=== PATIENT | male | born 1995 | race Asian ===

== ENCOUNTER 2017-06-05 19:32 | Emergency (ER) | payer BC, MEDICAID ==
[~2017-06-05] VITALS: Ht 137.2 cm; Wt 38.6 kg
[2017-06-05] MEDS ORDERED: FLUO-177 PO (19:40)
[2017-06-05] MEDS ORDERED: QUET150T3 PO (19:40)
[2017-06-05] MEDS ORDERED: fentaNYL CITR 100 MCG/2 ML AMP IVP ONE (20:00)
[2017-06-05] MEDS ORDERED: ONDANSETRON 4 MG/2 ML VIAL IVP ONE (20:00)
--- NOTE | 2017-06-05 20:00 | ER Report ---
History and Physical Time Seen By MD: 19:38 HPI/ROS CHIEF COMPLAINT: Fall HISTORY OF PRESENT ILLNESS: 21-year-old male with osteogenesis imperfecta here after fall face down from wheelchair with multiple suspected fractures he complains of pain in bilateral upper and lower extremities but denies pelvic or rib pain. He also denies head or neck pain. He is pretty sure he is fractured in multiple areas in his extremities. EMS was in agreement with this. Apparently the fall happened sometime this morning and they were found him down , gave him his cell phone so that he call his father for help. REVIEW OF SYSTEMS: Constitutional: No fever, no chills. Eyes: No discharge. ENT: No sore throat. Cardiovascular: No chest pain, no palpitations. Respiratory: No cough, no shortness of breath. Gastrointestinal: No abdominal pain, no vomiting. Genitourinary: No hematuria. Musculoskeletal: Negative as per history of present illness Skin: No rashes. Neurological: No headache. Allergies: Coded Allergies: No Known Drug Allergies (Unverified , 06/05/17) Home Meds Reported Medications Quetiapine Fumarate (SEROQUEL XR) 150 Mg Tab.er.24h, 125 MG PO DAILY 06/05/17 Fluoxetine Hcl (FLUOXETINE HCL) 20 Mg Capsule, PO QDAY, CAPSULE 06/05/17 Constitutional Vital Sign - Last 24 Hours 06/05/17 06/05/17 06/05/17 06/05/17 19:40 19:45 20:00 20:30 Temp 97.8 Pulse 149 149 120 130 Resp 14 16 16 Pulse Ox 98 97 92 92 O2 Delivery Room Air Room Air Room Air 06/05/17 06/05/17 21:00 21:30 Pulse 145 160 Resp 16 14 Pulse Ox 92 92 O2 Delivery Room Air Room Air Intake and Output 06/05/17 06/05/17 06/06/17 15:01 23:01 07:01 Output Total 0 ml Balance 0 ml Physical Exam General Appearance: The patient is alert, has no immediate need for airway protection and no signs of toxicity. [ ] Eyes: Pupils equal and round no pallor or injection. ENT, Mouth: Mucous membranes are moist. Respiratory: There are no retractions, lungs are clear to auscultation. Cardiovascular: Regular rate and rhythm. No murmurs gallops or rubs Gastrointestinal: Abdomen is soft and non tender, no masses, bowel sounds normal. Neurological: Awake and talking Skin: Warm and dry, no rashes. Musculoskeletal: Neck is supple non tender. Crepitus present right humerus left humerus right wrist. Tenderness bilateral lower extremities diffusely. [ ] DIFFERENTIAL DIAGNOSIS: After history and physical exam differential diagnosis was considered for fall osteogenesis imperfecta multiple fractures Medical Decision Making Data Points Result Diagram: 06/05/17223406/05/172234 Laboratory Hematology Test 06/05/17 22:35 Red Blood Count 4.41 M/uL (4.00-5.60) Mean Corpuscular Volume 89.1 fL (80.0-96.0) Mean Corpuscular Hemoglobin 30.9 pg (26.0-33.0) Mean Corpuscular Hemoglobin Concent 34.7 g/dL (32.0-36.0) Red Cell Distribution Width 13.1 % (11.5-14.5) Mean Platelet Volume 6.3 fL (7.2-11.1) Neutrophils (%) (Auto) 84.1 % (39.4-72.5) Lymphocytes (%) (Auto) 7.3 % (17.6-49.6) Monocytes (%) (Auto) 8.3 % (4.1-12.4) Eosinophils (%) (Auto) 0.1 % (0.4-6.7) Basophils (%) (Auto) 0.2 % (0.3-1.4) Nucleated RBC Relative Count (auto) 0.0 /100WBC Neutrophils # (Auto) 22.3 K/uL (2.0-7.4) Lymphocytes # (Auto) 1.9 K/uL (1.3-3.6) Monocytes # (Auto) 2.2 K/uL (0.3-1.0) Eosinophils # (Auto) 0.0 K/uL (0.0-0.5) Basophils # (Auto) 0.1 K/uL (0.0-0.1) Nucleated RBC Absolute Count (auto) 0.01 K/uL Peripheral Blood Smear Yes Y/N Sodium Level 142 mmol/L (137-145) Potassium Level 3.7 mmol/L (3.5-5.0) Chloride Level 105 mmol/L (98-107) Carbon Dioxide Level 17 mmol/L (22-30) Blood Urea Nitrogen 10 mg/dl (9-21) Creatinine 1.20 mg/dl (0.66-1.25) Glomerular Filtration Rate Calc > 60.0 Random Glucose 148 mg/dl (75-110) Calcium Level 9.5 mg/dl (8.4-10.2) Chemistry Test 06/05/17 22:35 White Blood Count 26.6 k/uL (4.5-11.0) Red Blood Count 4.41 M/uL (4.00-5.60) Hemoglobin 13.6 g/dL (14.0-18.0) Hematocrit 39.3 % (42.0-52.0) Mean Corpuscular Volume 89.1 fL (80.0-96.0) Mean Corpuscular Hemoglobin 30.9 pg (26.0-33.0) Mean Corpuscular Hemoglobin Concent 34.7 g/dL (32.0-36.0) Red Cell Distribution Width 13.1 % (11.5-14.5) Platelet Count 519 K/uL (150-450) Mean Platelet Volume 6.3 fL (7.2-11.1) Neutrophils (%) (Auto) 84.1 % (39.4-72.5) Lymphocytes (%) (Auto) 7.3 % (17.6-49.6) Monocytes (%) (Auto) 8.3 % (4.1-12.4) Eosinophils (%) (Auto) 0.1 % (0.4-6.7) Basophils (%) (Auto) 0.2 % (0.3-1.4) Nucleated RBC Relative Count (auto) 0.0 /100WBC Neutrophils # (Auto) 22.3 K/uL (2.0-7.4) Lymphocytes # (Auto) 1.9 K/uL (1.3-3.6) Monocytes # (Auto) 2.2 K/uL (0.3-1.0) Eosinophils # (Auto) 0.0 K/uL (0.0-0.5) Basophils # (Auto) 0.1 K/uL (0.0-0.1) Nucleated RBC Absolute Count (auto) 0.01 K/uL Peripheral Blood Smear Yes Y/N Glomerular Filtration Rate Calc > 60.0 Calcium Level 9.5 mg/dl (8.4-10.2) ED Course/Re-evaluation ED Course electronic engineering technician notified; d/w Dr Gutierrez, plan for CT jarrett scan suspected multiple fractures. Complete bone survey for extremities. Patient requesting transfer to [facility]. 06/05/2017 11:41:37 pm patient accepted by orthopedic surgeon at [facility] in [place] Dr. Cm Alberto. Patient accepted by emergency department attending Patient will be transferred ALS and go directly to the ED Vital stable and pain well-controlled prior to discharge Decision to Disposition Date: Jun 05, 2017 Decision to Disposition Time: 23:42 Depart Departure Latest Vital Signs Vital Signs Date Time Temp Pulse Resp B/P (MAP) Pulse Ox O2 Delivery O2 Flow Rate FiO2 06/05/17 21:30 160 14 92 Room Air 06/05/17 19:40 97.8 Impression: Primary Impression: Fractures involving multiple body regions Additional Impression: Fall from wheelchair Condition: Improved Disposition: [facility] Problem Qualifiers ROXI MARSH MD Jun 05, 2017 20:00
[2017-06-05] MEDS ORDERED: MORPHINE 10 MG/ML SYR IM PRN (20:30)
[2017-06-05] MEDS ORDERED: ONDANSETRON 4 MG ODT TH SL ONE (20:55)
[2017-06-05] MEDS ORDERED: ONDANSETRON 4 MG ODT TABDP SL ONE (21:00)
--- NOTE | 2017-06-05 21:55 | RADIOLOGY IMAGING REPORT ---
FACILITY: [facility] PATIENT NAME: Cm Hamlin : 1995 MR: [id number] V: [id number] EXAM DATE: ORDERING PHYSICIAN: ROXI MARSH TECHNOLOGIST: Location: [facility] [place] Patient: Cm Hamlin : 1995 Visit/Account:[id number] Date of Sevice: 06/05/2017 HEAD W/O CONTRAST HISTORY: fall, fractures COMPARISON STUDIES: None TECHNIQUE: Contiguous axial images were obtained from the skull base to the vertex. One of the ShipEarly dose optimization techniques was utilized in the performance of this exam: automated exposure co ntrol; adjustment of the mA and/or kv according to patient size; or use of iterative reconstruction t echnique. Specific details can be referenced in the facility's radiology CT exam operational policy. FINDINGS: Hemorrhage: Negative Ventricles / sulci / fissures: No hydrocephalus. Prominent posterior fossa CSF Masses / midline shift: Negative White matter: Negative Rodrigez-white differentiation: Negative Vessels: Negative Extra-axial spaces: Negative Bones/skull base: Negative Visualized mastoid air cells / paranasal sinuses: Negative Scalp and soft tissues: Right frontal scalp hematoma. Other findings: None significant IMPRESSION: 1. Negative for acute intracranial blood or skull fracture. Report Dictated By: Krishna Rosenberg MD at 06/05/2017 9:44 PM Report E-Signed By: Krishna Rosenberg MD at 06/05/2017 9:50 PM WSN:[id number]
--- NOTE | 2017-06-05 21:57 | RADIOLOGY IMAGING REPORT ---
FAC[place]: [facility] [place]IENT NAME: Cm Hamlin : 1995 MR: [id number] V: [id number] EXAM DATE: ORDERING PHYSICIAN: ROXI MARSH TECHNOLOGIST: Location: [facility] Patient: Cm Hamlin : 1995 Visit/Account:[id number] Date of Sevice: 06/05/2017 C-SPINE W/O CONTRAST HISTORY: fall, fractures COMPARISON STUDIES: none TECHNIQUE: Axial images were obtained from the skull base through the upper thoracic spine without i ntravenous contrast. Coronal and sagittal reformatted images were obtained from the axial source data . One of the following dose optimization techniques was utilized in the performance of this exam: aut omated exposure control; adjustment of the mA and/or kv according to patient size; or use of iterativ e reconstruction technique. Specific details can be referenced in the facility's radiology CT exam op erational policy. FINDINGS: Pre-vertebral soft tissues: Negative Fracture/alignment: negative Vertebral bodies: Negative Posterior elements: Negative Disc Spaces: Negative Visualized soft tissues anterior neck: Negative Visualized lung / mediastinum: Negative Other findings: None significant IMPRESSION: 1. Negative for acute fracture or spondylolisthesis. Report Dictated By: Krishna Rosenberg MD at 06/05/2017 9:51 PM Report E-Signed By: Krishna Rosenberg MD at 06/05/2017 9:53 PM WSN:[id number]
--- NOTE | 2017-06-05 22:01 | RADIOLOGY IMAGING REPORT ---
FACILITY: [facility] [place] PATIENT NAME: Cm Hamlin : 1995 MR: [id number] V: [id number] EXAM DATE: ORDERING PHYSICIAN: ROXI MARSH TECHNOLOGIST: Location: [facility] Patient: Cm Hamlin : 1995 Visit/Account:[id number] Date of Sevice: 06/05/2017 T-SPINE W/O CONTRAST History: Fall COMPARISON STUDIES: none TECHNIQUE: Axial images were obtained from the lower cervico-thoracic junction through the thoraco-l umbar junction without IV contrast administration. Coronal and sagittal reformatted images were obtai carlos from the axial source data. One of the following dose optimization techniques was utilized in the performance of this exam: automated exposure control; adjustment of the mA and/or kv according to pa tient size; or use of iterative reconstruction technique. Specific details can be referenced in the [facility]'s radiology CT exam operational policy. FINDINGS: Paravertebral soft tissues: Negative Alignment: Negative Vertebral bodies: Mild superior endplate compression fractures at T6 and T7. No retropulsed bony ridg e or bony stenosis of the canal. Dextroscoliosis. Posterior elements: Negative Disc Spaces: Negative Visualized lung / mediastinum / abdomen: Please see separate report Other findings: None significant IMPRESSION: 1. Mild superior endplate compression fractures at T6 and T7. No retropulsed bony ridge or bony steno sis of the canal. Report Dictated By: Krishna Rosenberg MD at 06/05/2017 9:53 PM Report E-Signed By: Krishna Rosenberg MD at 06/05/2017 9:58 PM WSN:[id number]
--- NOTE | 2017-06-05 22:08 | RADIOLOGY IMAGING REPORT ---
FACILITY: [facility] - [place] PATIENT NAME: Cm Hamlin : 1995 MR: [id number] V: [id number] EXAM DATE: ORDERING PHYSICIAN: ROXI MARSH TECHNOLOGIST: Location: [facility] [place] Patient: Cm Hamlin : 1995 Visit/Account:[id number] Date of Sevice: 06/05/2017 L-SPINE W/O CONTRAST HISTORY: Fall COMPARISON STUDIES: None TECHNIQUE: Axial images were obtained from the thoraco-lumbar junction through the upper sacrum with out IV contrast administration. Coronal and sagittal reformatted images were obtained from the axial source data. One of the following dose optimization techniques was utilized in the performance of thi s exam: automated exposure control; adjustment of the mA and/or kv according to patient size; or use of iterative reconstruction technique. Specific details can be referenced in the facility's radiology CT exam operational policy. FINDINGS: Paravertebral soft tissues: Negative Alignment: Negative Vertebral bodies: Negative Posterior elements: Mild facet proliferation at L5-S1. Disc Spaces: Negative Visualized retroperitoneal / abdominal structures: Please see separate report Other findings: None significant IMPRESSION: 1. Negative for acute fracture or spondylolisthesis Report Dictated By: Krishna Rosenberg MD at 06/05/2017 9:58 PM Report E-Signed By: Krishna Rosenberg MD at 06/05/2017 10:04 PM WSN:[id number]
--- NOTE | 2017-06-05 22:22 | RADIOLOGY IMAGING REPORT ---
FACILITY: [facility] PATIENT NAME: Cm Hamlin : 1995 MR: [id number] V: [id number] EXAM DATE: ORDERING PHYSICIAN: ROXI MARSH TECHNOLOGIST: Location: [facility] [place] Patient: Cm Hamlin : 1995 Visit/Account:[id number] Date of Sevice: 06/05/2017 WRIST LEFT MIN 2 VIEW HISTORY: Fall COMPARISON: None FINDINGS: No evidence of acute fracture or dislocation. Carpal rows are well aligned. Scaphoid bone i s intact. Ulnar minus variance. Bones are demineralized. IMPRESSION: 1. Bones are demineralized. No discrete fracture. Report Dictated By: Krishna Rosenberg MD at 06/05/2017 10:17 PM Report E-Signed By: Krishna Rosenberg MD at 06/05/2017 10:18 PM WSN:[id number]
--- NOTE | 2017-06-05 22:22 | RADIOLOGY IMAGING REPORT ---
FACILITY: [facility] [place] PATIENT NAME: Cm Hamlin : 1995 MR: [id number] V: [id number] EXAM DATE: ORDERING PHYSICIAN: ROXI MARSH TECHNOLOGIST: Location: [facility] Patient: Cm Hamlin : 1995 Visit/Account:[id number] Date of Sevice: 06/05/2017 WRIST RIGHT MIN 3 VIEW HISTORY: Fall COMPARISON: None FINDINGS: Impacted fracture the distal radial metaphysis with ulnar positive variance. Distal radioul brissa joint appears subluxed if not dislocated on lateral image. Bones are demineralized. IMPRESSION: 1. Impacted distal radial metaphyseal fracture with ulnar positive variance. 2. Subluxation versus dislocation at the distal radioulnar joint. Report Dictated By: Krishna Rosenberg MD at 06/05/2017 10:18 PM Report E-Signed By: Krishna Rosenberg MD at 06/05/2017 10:19 PM WSN:[id number]
--- NOTE | 2017-06-05 22:23 | RADIOLOGY IMAGING REPORT ---
FACILITY: [facility] PATIENT NAME: Cm Hamlin : 1995 MR: [id number] V: [id number] EXAM DATE: ORDERING PHYSICIAN: ROXI MARSH TECHNOLOGIST: Location: [facility] [place] Patient: Cm Hamlin : 1995 Visit/Account:[id number] Date of Sevice: 06/05/2017 FOREARM LEFT HISTORY: fracture COMPARISON: None FINDINGS: Bowing of the radius and ulna. No discrete fracture plane. Bones are demineralized. IMPRESSION: 1. Bowing of the radius and ulna. This may be developmental. Bowing fractures in this age group felt to be less likely. Report Dictated By: Krishna Rosenberg MD at 06/05/2017 10:19 PM Report E-Signed By: Krishna Rosenberg MD at 06/05/2017 10:21 PM WSN:[id number]
--- NOTE | 2017-06-05 22:26 | RADIOLOGY IMAGING REPORT ---
FACILITY: [facility] PATIENT NAME: Cm Hamlin : 1995 MR: [id number] V: [id number] EXAM DATE: ORDERING PHYSICIAN: ROXI MARSH TECHNOLOGIST: Location: [facility] Patient: Cm Hamlin : 1995 Visit/Account:[id number] Date of Sevice: 06/05/2017 FOREARM RIGHT HISTORY: Fall COMPARISON: None FINDINGS: Impacted distal right radial metaphyseal fracture with subluxation versus dislocation of th e distal radial ulnar joint discussed on wrist x-rays from the same day. Mild bowing of the radial an d ulnar shafts without discrete fracture. No radiopaque foreign body. Bones are demineralized. IMPRESSION: 1. Mild bowing of the radius and ulna more likely developmental rather than bowing fracture in this a ge group. 2. Impacted distal radial metaphyseal fracture discussed on separate wrist x-rays. Report Dictated By: Krishna Rosenberg MD at 06/05/2017 10:21 PM Report E-Signed By: Krishna Rosenberg MD at 06/05/2017 10:22 PM WSN:[id number]
[2017-06-05 22:50] LABS: PLATELET COUNT, AUTOMATED 519 K/uL (150-450)
--- NOTE | 2017-06-05 22:59 | RADIOLOGY IMAGING REPORT ---
FACILITY: [facility] PATIENT NAME: Cm Hamlin : 1995 MR: [id number] V: [id number] EXAM DATE: ORDERING PHYSICIAN: ROXI MARSH TECHNOLOGIST: Location: [facility] Patient: Cm Hamlin : 1995 Visit/Account:[id number] Date of Sevice: 06/05/2017 HUMERUS LEFT HISTORY: fracture COMPARISON: None FINDINGS: Single view reveals comminuted, intra-articular humeral head fracture which appears displac ed. Small bone fragment adjacent to the proximal humeral shaft. Difficult to evaluate for dislocation although the dominant humeral head bone fragment appears displaced inferiorly. IMPRESSION: 1. Comminuted, intra-articular humeral head fracture with displacement. The dominant bone fragment in volving the humeral head articular surface appears inferiorly dislocated from the glenoid. Results were called to ROXI MARSH at 06/05/2017 10:55 PM. Report Dictated By: Krishna Rosenberg MD at 06/05/2017 10:22 PM Report E-Signed By: Krishna Rosenberg MD at 06/05/2017 10:55 PM WSN:[id number]
--- NOTE | 2017-06-05 22:59 | RADIOLOGY IMAGING REPORT ---
[facility] PATIENT NAME: Cm Hamlin : 1995 MR: [id number] V: [id number] EXAM DATE: ORDERING PHYSICIAN: ROXI MARSH TECHNOLOGIST: Location: [facility] [place] Patient: Cm Hamlin : 1995 Visit/Account:[id number] Date of Sevice: 06/05/2017 CHEST/AB/PELV W/OUT CONTRAST HISTORY: Fall. Multiple fractures. TECHNIQUE: CT imaging was obtained through the chest, abdomen and pelvis without intravenous contras t. One of the following dose optimization techniques was utilized in the performance of this exam: au tomated exposure control; adjustment of the mA and/or kv according to patient size; or use of iterati ve reconstruction technique. Specific details can be referenced in the facility's radiology CT exam o perational policy. CONTRAST: None COMPARISON: None. FINDINGS: CHEST: Lower neck: Negative. Vessels: Negative. Heart and pericardium: Negative Mediastinum/hilum/lymph nodes: Negative. Lungs/pleura: Negative. Bones/soft tissues: Comminuted, displaced, intra-articular fracture of the left humeral head with po sterior-inferior dislocation of the dominant bone fragment involving the humeral head articular surfa ce. Moderate hematoma within the left proximal arm. Nondisplaced fracture the right acromium which ap pears acute. Intramedullary natalie traversing a right humeral neck fracture. Fracture margins are displa levi without bony bridging. Most of the right humeral head articular surface is dislocated posteriorly . Mild compression fractures at T6 and T7 without retropulsed bony ridge or bony stenosis of the corrina l. Other findings: None significant ABDOMEN/PELVIS: Hepatobiliary: Negative. Spleen: Negative. Adrenals: Negative. Pancreas: Negative. Kidneys/ureters/bladder: Negative. Bowel/peritoneum/mesentery: No ascites. No free air. Vessels: Negative. Lymph nodes: Negative. Pelvic genitourinary: Negative. Bones/soft tissues: Bilateral proximal femoral intramedullary rods. Hip joints are well aligned. Other findings: None significant IMPRESSION: 1. Comminuted, displaced, intra-articular fracture of the left humeral head with posterior-inferior d islocation of the dominant bone fragment involving the humeral head articular surface. Moderate hemat amanda within the left proximal arm. 2. Nondisplaced fracture the right acromion which appears acute. 3. Intramedullary natalie traversing a right humeral neck fracture. Fracture margins are displaced withou t bony bridging. No comparison exam. Most of the right humeral head articular surface is dislocated p osteriorly. 4. Mild compression fractures at T6 and T7 without retropulsed bony ridge or bony stenosis of the can al. 5. Otherwise negative for traumatic injury to the chest. No free fluid or free air within the abdomen or pelvis. Evaluation is limited without intravenous contrast. Results were called to ROXI MARSH at 06/05/2017 10:53 PM. Report Dictated By: Krishna Rosenberg MD at 06/05/2017 10:38 PM Report E-Signed By: Krishna Rosenberg MD at 06/05/2017 10:54 PM WSN:[id number]
--- NOTE | 2017-06-05 23:01 | RADIOLOGY IMAGING REPORT ---
FACILITY: PATIENT NAME: Cm Hamlin : 1995 MR: [id number] V: [id number] EXAM DATE: ORDERING PHYSICIAN: ROXI MARSH TECHNOLOGIST: Location: [facility] Patient: Cm Hamlin : 1995 Visit/Account:[id number] Date of Sevice: 06/05/2017 HUMERUS RIGHT HISTORY: Fall COMPARISON: None FINDINGS: Intramedullary maciel traversing a displaced proximal humeral shaft fracture with intra-articu lar extension and a displaced humeral head bone fragment. Maciel appears intact. No significant bony vee dging. Fracture margins appear acute. Bones are demineralized. Distal screw plate fixation of the hum erus also noted. IMPRESSION: 1. Intramedullary maciel traversing a displaced proximal humeral shaft fracture with intra-articular ext ension and mildly displaced humeral head bone fragment. Margins appear acute without bony bridging. N o comparison images. Probable subluxation if not dislocation at the glenohumeral joint, suboptimally evaluated. 2. Nondisplaced fracture the acromium appears acute. Results were called to ROIX MARSH at 06/05/2017 10:56 PM. Report Dictated By: Krishna Rosenberg MD at 06/05/2017 10:26 PM Report E-Signed By: Krishna Rosenberg MD at 06/05/2017 10:57 PM WSN:[id number]
--- NOTE | 2017-06-05 23:03 | RADIOLOGY IMAGING REPORT ---
[facility] PATIENT NAME: Cm Hamlin : 1995 MR: [id number] V: [id number] EXAM DATE: ORDERING PHYSICIAN: ROXI MARSH TECHNOLOGIST: Location: [facility] [place] Patient: Cm Hamlin : 1995 Visit/Account:[id number] Date of Sevice: 06/05/2017 SHOULDER 1 VIEW LEFT HISTORY: Fall COMPARISON: None FINDINGS: Left shoulder: Comminuted, intra-articular humeral head fracture with displacement. Dominant humeral head bone fragment disappears dislocated from the glenoid. Small bone fragment seen at the proximal h umeral shaft. IMPRESSION: 1. Comminuted, intra-articular humeral head fracture with displacement. This is better evaluated on C T chest from the same day. Please see that report for additional details. Results were called to ROXI MARSH at 06/05/2017 10:58 PM. Report Dictated By: Krishna Rosenberg MD at 06/05/2017 10:24 PM Report E-Signed By: Krishna Rosenberg MD at 06/05/2017 10:58 PM WSN:[id number]
--- NOTE | 2017-06-05 23:11 | RADIOLOGY IMAGING REPORT ---
FACILITY: [facility] [place] PATIENT NAME: Cm Hamlin : 1995 MR: [id number] V: [id number] EXAM DATE: ORDERING PHYSICIAN: ROXI MARSH TECHNOLOGIST: Location: [facility] [place] Patient: Cm Hamlin : 1995 Visit/Account:[id number] Date of Sevice: 06/05/2017 SHOULDER 1 VIEW RIGHT HISTORY: Fall COMPARISON: None FINDINGS: Right shoulder: Intramedullary natalie traverses a displaced, oblique proximal humeral shaft fracture wit h intra-articular extension and mild displacement of the humeral head bone fragment. Hardware is inta ct. Fracture margins appear acute without bony bridging. Nondisplaced fracture of the acromium noted. Clavicle is intact. Mild offset of the AC joint. IMPRESSION: 1. Acute nondisplaced oblique fracture of the acromium. 2. Intramedullary natalie traverses a mildly displaced oblique proximal humeral shaft fracture with intra -articular extension and a mildly displaced humeral head bone fragment. Margins appear acute. No bony bridging. Hardware is intact. Report Dictated By: Krishna Rosenberg MD at 06/05/2017 10:27 PM Report E-Signed By: Krishna Rosenberg MD at 06/05/2017 11:07 PM WSN:[id number]
--- NOTE | 2017-06-05 23:48 | RADIOLOGY IMAGING REPORT ---
FACILITY: [facility] PATIENT NAME: Cm Hamlin : 1995 MR: [id number] V: [id number] EXAM DATE: ORDERING PHYSICIAN: ROXI MARSH TECHNOLOGIST: Location: [facility] Patient: Cm Hamlin : 1995 Visit/Account:[id number] Date of Sevice: 06/05/2017 FEMUR RIGHT HISTORY: Osteogenesis imperfecta. Fall. COMPARISON: None FINDINGS: Intramedullary natalie traversing the femur. No discrete femoral fracture. Tibial and fibular f ractures discussed on separate report. IMPRESSION: 1. Intramedullary natalie traversing the femur without discrete femoral fracture. 2. Tibial and fibular fractures discussed on separate report Report Dictated By: Krishna Rosenberg MD at 06/05/2017 11:41 PM Report E-Signed By: Krishna Rosenberg MD at 06/05/2017 11:43 PM WSN:[id number]
--- NOTE | 2017-06-05 23:50 | RADIOLOGY IMAGING REPORT ---
FACILITY: [facility] PATIENT NAME: Cm Hamlin : 1995 MR: [id number] V: [id number] EXAM DATE: ORDERING PHYSICIAN: ROXI MARSH TECHNOLOGIST: Location: [facility] Patient: Cm Hamlin : 1995 Visit/Account:[id number] Date of Sevice: 06/05/2017 TIBIA FIBULA RIGHT HISTORY: Osteogenesis imperfecta. Fall. COMPARISON: None FINDINGS: Bowing of the tibia and fibula. Bones are demineralized. Comminuted, mildly displaced proxi mal tibial diaphyseal fracture without intra-articular extension. Mildly displaced fracture of the mi d fibular shaft. Nondisplaced fracture of the proximal fibular neck. Small ossicle adjacent to the rich perior pole the patella. IMPRESSION: 1. Probable chronic bowing of the tibial and fibula with demineralization. 2. Comminuted, mildly displaced fracture the proximal tibial diaphysis. 3. Mildly displaced fracture involving the mid fibular shaft. Nondisplaced fracture involving the pro ximal fibular neck. 3. On lateral image there is a small bone fragment adjacent to the superior margin the patella. Small avulsion fracture not excluded. Recommend correlation for pain at this site. Report Dictated By: Krishna Rosenberg MD at 06/05/2017 11:43 PM Report E-Signed By: Krishna Rosenberg MD at 06/05/2017 11:46 PM WSN:[id number]
[2017-06-05] MEDS ORDERED: NS(*) 0.9% 1000 ML BAG 1,000 ML IV ONE (23:55)
--- NOTE | 2017-06-05 23:56 | RADIOLOGY IMAGING REPORT ---
FACILITY: PATIENT NAME: Cm Hamlin : 1995 MR: [id number] V: [id number] EXAM DATE: ORDERING PHYSICIAN: ROXI MARSH TECHNOLOGIST: Location: [facility] Patient: Cm Hamlin : 1995 Visit/Account:[id number] Date of Sevice: 06/05/2017 FEMUR LEFT HISTORY: Osteogenesis imperfecta. Trauma. COMPARISON: None FINDINGS: Femoral intramedullary natalie. Bones are demineralized. There is a comminuted fracture involvi ng the distal femoral diametaphysis which is likely mildly displaced. Small bone fragment adjacent to the superior pole the patella. Tibial intramedullary natalie noted. IMPRESSION: 1. Femoral intramedullary natalie. Comminuted fracture of the distal femoral diametaphysis which is likel y mildly displaced on the AP image. Report Dictated By: Krishna Rosenberg MD at 06/05/2017 11:47 PM Report E-Signed By: Krishna Rosenberg MD at 06/05/2017 11:53 PM WSN:[id number]
--- NOTE | 2017-06-06 00:01 | RADIOLOGY IMAGING REPORT ---
FACILITY: [facility] PATIENT NAME: Cm Hamlin : 1995 MR: [id number] V: [id number] EXAM DATE: ORDERING PHYSICIAN: ROXI MARSH TECHNOLOGIST: Location: [facility] [place] Patient: Cm Hamlin : 1995 Visit/Account:[id number] Date of Sevice: 06/05/2017 TIBIA FIBULA LEFT HISTORY: Osteogenesis imperfecta. Fall. COMPARISON: None FINDINGS: Tibial intramedullary natalie. Chronic appearing bowing of the tibia and fibula with bony bridg ing at the mid shafts. Mildly displaced/impacted fracture of the distal tibial diametaphysis. Intrame dullary natalie appears intact. Questionable fracture of the distal fibular neck. Bones are demineralized . IMPRESSION: 1. Mildly displaced/impacted fracture the distal tibial diametaphysis. 2. Questionable fracture the distal fibular neck. 3. Intact tibial intramedullary natalie. Report Dictated By: Krishna Rosenberg MD at 06/05/2017 11:53 PM Report E-Signed By: Krishna Rosenberg MD at 06/05/2017 11:57 PM WSN:[id number]
--- NOTE | 2017-06-06 00:05 | RADIOLOGY IMAGING REPORT ---
FACILITY: [facility] [place] PATIENT NAME: Cm Hamlin : 1995 MR: [id number] V: [id number] EXAM DATE: ORDERING PHYSICIAN: ROXI MARSH [place]CHNOLOGIST: [place] [facility] [place]m [place] : 1995 Visit/Account:[id number] Date of Sevice: 06/05/2017 FOOT 2 VIEW LEFT HISTORY: Osteogenesis imperfecta. Fall. COMPARISON: None FINDINGS: Bones are severely demineralized. Fracture of the distal tibial diametaphysis and questiona ble fracture the distal fibular neck discussed on separate x-ray report. Evaluation for foot fracture is very limited secondary to bone demineralization. No discrete foot fracture identified. IMPRESSION: 1. Bones are severely demineralized. No discrete foot fracture. 2. Distal tibial fracture and questionable distal fibular neck fracture discussed on separate report Report Dictated By: Krishna Rosenberg MD at 06/05/2017 11:59 PM Report E-Signed By: Krishna Rosenberg MD at 06/06/2017 12:01 AM WSN:[id number]
--- NOTE | 2017-06-06 00:06 | RADIOLOGY IMAGING REPORT ---
FACILITY: [facility] PATIENT NAME: Cm Hamlin : 1995 MR: [id number] V: [id number] EXAM DATE: ORDERING PHYSICIAN: ROXI MARSH TECHNOLOGIST: Location: [facility] Patient: Cm Hamlin : 1995 Visit/Account:[id number] Date of Sevice: 06/05/2017 FOOT 2 VIEW RIGHT HISTORY: Osteogenesis imperfecta. Fall. COMPARISON: None FINDINGS: Bones are severely demineralized. No discrete foot fracture. IMPRESSION: 1. Severe bone demineralization limits evaluation. No discrete foot fracture. Report Dictated By: Krishna Rosenberg MD at 06/06/2017 12:01 AM Report E-Signed By: Krishna Rosenberg MD at 06/06/2017 12:02 AM WSN:[id number]
[2017-06-06] MEDS ORDERED: MORPHINE 4 MG/ML SYR IVP ONE (01:25)
[2017-06-06] MEDS ORDERED: ONDANSETRON 4 MG/2 ML VIAL IVP ONE (01:25)
== END 2017-06-06 01:45 | disposition short-term general hospital (02) ==
LOC: ER 19:38
DX: S72.8X2A Other fracture of left femur, initial encounter for closed fracture (principal); S82.302A Unspecified fracture of lower end of left tibia, initial encounter for closed fracture; S42.352A Displaced comminuted fracture of shaft of humerus, left arm, initial encounter for closed fracture; S42.301A Unspecified fracture of shaft of humerus, right arm, initial encounter for closed fracture; S42.124A Nondisplaced fracture of acromial process, right shoulder, initial encounter for closed fracture; S82.491A Other fracture of shaft of right fibula, initial encounter for closed fracture; S52.691A Other fracture of lower end of right ulna, initial encounter for closed fracture; S22.050A Wedge compression fracture of T5-T6 vertebra, initial encounter for closed fracture; S22.060A Wedge compression fracture of T7-T8 vertebra, initial encounter for closed fracture; W05.0XXA Fall from non-moving wheelchair, initial encounter
CPT/HCPCS: 70450; 71250; 72125; 72128; 72131; 73020; 73060; 73090; 73110; 73552; 73590; 73620; 74176; 81001; 85025; 96361; 96374; 96375; 96376; 99285; J2270; J2405; J3010; J7030; S0119; 72192; 74150; 82310; 82374; 82435; 82565; 82947; 84132; 84295; 84520

== ENCOUNTER → 2017-06-05 | Outpatient (CLI) | payer BC, MEDICAID ==
[~2017-06-05] MED LIST: FLUO-177 PO; QUET150T3 PO
== END ==
LOC: AMB 18:47
PROVIDERS: ATTEND Nurse Practitioner
DX: M25.561 Pain in right knee (principal); M25.572 Pain in left ankle and joints of left foot; M79.621 Pain in right upper arm; M25.512 Pain in left shoulder; W05.0XXA Fall from non-moving wheelchair, initial encounter; Y93.9 Activity, unspecified; Y92.019 Unspecified place in single-family (private) house as the place of occurrence of the external cause; Y99.9 Unspecified external cause status
CPT/HCPCS: A0425; A0429

== ENCOUNTER → 2017-06-06 | Outpatient (CLI) | payer BC, MEDICAID | LOC: AMB 01:18 | PROVIDERS: ATTEND Nurse Practitioner | DX: Q78.0 Osteogenesis imperfecta (principal); S42.301A Unspecified fracture of shaft of humerus, right arm, initial encounter for closed fracture; S42.92XA Fracture of left shoulder girdle, part unspecified, initial encounter for closed fracture; S72.92XA Unspecified fracture of left femur, initial encounter for closed fracture; S22.059A Unspecified fracture of T5-T6 vertebra, initial encounter for closed fracture; S22.069A Unspecified fracture of T7-T8 vertebra, initial encounter for closed fracture; W05.0XXA Fall from non-moving wheelchair, initial encounter; Y92.009 Unspecified place in unspecified non-institutional (private) residence as the place of occurrence of the external cause; Y99.9 Unspecified external cause status | CPT/HCPCS: A0425; A0433 ==

== ENCOUNTER 2017-07-20 13:10 | Emergency (ER) | payer BC, MEDICAID ==
--- NOTE | 2017-07-20 13:51 | ER Report ---
History and Physical Time Seen By MD: 13:16 Hx. of Stated Complaint: LEFT HIP PAIN - NO TRAUMA. HPI/ROS CHIEF COMPLAINT: Left hip pain HISTORY OF PRESENT ILLNESS: This is a 21-year-old male who presents the ED via ambulance with the complaint of left hip pain. He states that 5 weeks ago he did fall out of his wheelchair and has been having some intermittent left pain since. He states that he did have x-rays completed at the time that were negative. Patient states that this was completed [facility] where he does have most his orthopedic care completed. Patient has a history of osteogenesis imperfecta type III-IV. He has had multiple bone issues from this patient denies any recent injuries. He states he has been using a heating pad with some minimal relief. REVIEW OF SYSTEMS: Constitutional: No fever, no chills. Cardiovascular: No chest pain, no palpitations. Respiratory: No cough, no shortness of breath. Musculoskeletal: See history of present illness. Skin: No rashes. Neurological: No headache. Allergies: Coded Allergies: No Known Drug Allergies (Unverified , 06/05/17) Home Meds Reported Medications Quetiapine Fumarate (SEROQUEL XR) 150 Mg Tab.er.24h, 125 MG PO DAILY 06/05/17 Fluoxetine Hcl (FLUOXETINE HCL) 20 Mg Capsule, PO QDAY, CAPSULE 06/05/17 Reviewed Nurses Notes: Yes Old Medical Records Reviewed: Yes Hx Substance Use Disorder: No Hx Alcohol Use: No Constitutional Vital Sign - Last 24 Hours 07/20/17 07/20/17 07/20/17 07/20/17 13:20 13:30 14:00 14:30 Temp 98.6 Pulse 138 133 Resp 16 33 B/P (MAP) 114/85 145/102 (116) 141/94 (110) 116/79 (91) Pulse Ox 98 96 98 O2 Delivery Room Air 07/20/17 07/20/17 07/20/17 07/20/17 15:00 15:30 16:30 16:35 Pulse 123 128 118 118 Resp 19 30 14 22 B/P (MAP) 132/93 (106) 134/98 (110) Pulse Ox 98 07/20/17 07/20/17 07/20/17 07/20/17 16:50 17:05 17:20 17:35 Pulse 123 115 117 118 Resp 33 18 18 22 07/20/17 07/20/17 17:47 17:50 Pulse 116 Resp 22 B/P (MAP) 129/83 (98) Pulse Ox 95 Physical Exam General Appearance: The patient is alert, has no immediate need for airway protection and no signs of toxicity. Patient appears to be in some mild distress. Eyes: Pupils equal and round no pallor or injection. Respiratory: There are no retractions, lungs are clear to auscultation. Cardiovascular: Regular rate and rhythm. Skin: Warm and dry, no rashes. Musculoskeletal: Neck is supple non tender. He has pain with palpation of the left lateral hip and left groin area. No swelling or ecchymosis appreciated. Full range of motion with pain. PT and DP pulses are 2+ with normal capillary refill. Normal sensation. or [ ] Medical Decision Making Data Points Result Diagram: 07/20/17 1310 07/20/17 1310 Laboratory Hematology Test 07/20/17 13:10 Red Blood Count 4.85 M/uL (4.00-5.60) Mean Corpuscular Volume 87.9 fL (80.0-96.0) Mean Corpuscular Hemoglobin 30.7 pg (26.0-33.0) Mean Corpuscular Hemoglobin Concent 34.9 g/dL (32.0-36.0) Red Cell Distribution Width 14.1 % (11.5-14.5) Mean Platelet Volume 6.8 fL (7.2-11.1) Neutrophils (%) (Auto) 82.6 % (39.4-72.5) Lymphocytes (%) (Auto) 10.9 % (17.6-49.6) Monocytes (%) (Auto) 5.2 % (4.1-12.4) Eosinophils (%) (Auto) 0.9 % (0.4-6.7) Basophils (%) (Auto) 0.4 % (0.3-1.4) Nucleated RBC Relative Count (auto) 0.0 /100WBC Neutrophils # (Auto) 6.4 K/uL (2.0-7.4) Lymphocytes # (Auto) 0.8 K/uL (1.3-3.6) Monocytes # (Auto) 0.4 K/uL (0.3-1.0) Eosinophils # (Auto) 0.1 K/uL (0.0-0.5) Basophils # (Auto) 0.0 K/uL (0.0-0.1) Nucleated RBC Absolute Count (auto) 0.00 K/uL Prothrombin Time 14.4 seconds (12.0-14.4) Prothromb Time International Ratio 1.11 Activated Partial Thromboplast Time 33 seconds (23-35) Sodium Level 141 mmol/L (137-145) Potassium Level 3.8 mmol/L (3.5-5.0) Chloride Level 101 mmol/L (98-107) Carbon Dioxide Level 23 mmol/L (22-30) Blood Urea Nitrogen 7 mg/dl (9-21) Creatinine 0.70 mg/dl (0.66-1.25) Glomerular Filtration Rate Calc > 60.0 Random Glucose 116 mg/dl (75-110) Calcium Level 9.6 mg/dl (8.4-10.2) Total Bilirubin 0.5 mg/dl (0.2-1.3) Aspartate Amino Transf (AST/SGOT) 34 U/L (0-35) Alanine Aminotransferase (ALT/SGPT) 30 U/L (0-56) Alkaline Phosphatase 191 U/L (0-126) Total Protein 8.1 gm/dl (6.3-8.2) Albumin 4.7 g/dl (3.5-5.0) Chemistry Test 07/20/17 13:10 White Blood Count 7.7 k/uL (4.5-11.0) Red Blood Count 4.85 M/uL (4.00-5.60) Hemoglobin 14.9 g/dL (14.0-18.0) Hematocrit 42.6 % (42.0-52.0) Mean Corpuscular Volume 87.9 fL (80.0-96.0) Mean Corpuscular Hemoglobin 30.7 pg (26.0-33.0) Mean Corpuscular Hemoglobin Concent 34.9 g/dL (32.0-36.0) Red Cell Distribution Width 14.1 % (11.5-14.5) Platelet Count 274 K/uL (150-450) Mean Platelet Volume 6.8 fL (7.2-11.1) Neutrophils (%) (Auto) 82.6 % (39.4-72.5) Lymphocytes (%) (Auto) 10.9 % (17.6-49.6) Monocytes (%) (Auto) 5.2 % (4.1-12.4) Eosinophils (%) (Auto) 0.9 % (0.4-6.7) Basophils (%) (Auto) 0.4 % (0.3-1.4) Nucleated RBC Relative Count (auto) 0.0 /100WBC Neutrophils # (Auto) 6.4 K/uL (2.0-7.4) Lymphocytes # (Auto) 0.8 K/uL (1.3-3.6) Monocytes # (Auto) 0.4 K/uL (0.3-1.0) Eosinophils # (Auto) 0.1 K/uL (0.0-0.5) Basophils # (Auto) 0.0 K/uL (0.0-0.1) Nucleated RBC Absolute Count (auto) 0.00 K/uL Prothrombin Time 14.4 seconds (12.0-14.4) Prothromb Time International Ratio 1.11 Activated Partial Thromboplast Time 33 seconds (23-35) Glomerular Filtration Rate Calc > 60.0 Calcium Level 9.6 mg/dl (8.4-10.2) Total Bilirubin 0.5 mg/dl (0.2-1.3) Aspartate Amino Transf (AST/SGOT) 34 U/L (0-35) Alanine Aminotransferase (ALT/SGPT) 30 U/L (0-56) Alkaline Phosphatase 191 U/L (0-126) Total Protein 8.1 gm/dl (6.3-8.2) Albumin 4.7 g/dl (3.5-5.0) Coagulation Test 07/20/17 13:10 Prothrombin Time 14.4 seconds Prothromb Time International Ratio 1.11 Activated Partial Thromboplast Time 33 seconds EKG/Imaging Imaging Left Hip Xrays: IMPRESSION: No acute osseous abnormality. Old distal femoral fracture is noted. Posttraumatic/dysplastic findings of the left femur in keeping with history of osteogenesis imperfecta Report Dictated By: Angela Yao MD at 07/20/2017 1:59 PM Report E-Signed By: Angela Yao MD at 07/20/2017 2:[address] Pelvis: IMPRESSION: 1. Comminuted fracture of the left iliac wing is displaced, and the fracture extends to involve the superior acetabular roof and anterior acetabular wall as well as the left superior pubic ramus. 2. Fracture of the right sacral wing. 3. Diffusely decreased bone density. Report Dictated By: Angela Yao MD at 07/20/2017 2:48 PM Report E-Signed By: Angela Yao MD at 07/20/2017 2:57 PM ED Course/Re-evaluation ED Course Will obtain left hip x-rays. 07/20/2017 2:14:35 pm - results with patient and father. Patient is to have some pain Will obtain a CT pelvis to look at the pelvis and left hip. 07/20/2017 3:05:59 pm - discussed patient with Dr. Amaya, orthopedic resident had [facility] in [place], [place], who needed to see some imaging and discussed patient with his fellow and attending. After multiple conversations with him over the phone Dr. Tavarez advises to send patient to emergency department for evaluation and admission. Dr. Bhardwaj, ED is the accepting physician. Patient has been given 2 mg IV morphine in 4 mg IV Zofran with good pain relief. Discussed all CT results with the patient and father as well. They' re comfortable with plan for transfer. Decision to Disposition Date: Jul 20, 2017 Decision to Disposition Time: 17:30 Depart Departure Latest Vital Signs Vital Signs Date Time Temp Pulse Resp B/P (MAP) Pulse Ox O2 Delivery O2 Flow Rate FiO2 07/20/17 17:50 116 22 95 07/20/17 17:47 129/83 (98) 07/20/17 13:20 98.6 Room Air Impression: Primary Impression: Closed pelvic fracture Condition: Improved Disposition: XFER TO ACUTE CARE HOSPITAL Referrals: KRISTINA CHOWDHURY MD (PCP) [employer]/PA consult with MD: Verbally MD Consult Note: Dr. Amaya, Orthopedic Resident at [facility] Dr. Bhardwaj, ED at [facility] Problem Qualifiers Primary Impression: Closed pelvic fracture Encounter type: initial encounter Pelvic bone location: multiple parts Fracture alignment: with stable disruption of pelvic ring Qualified Codes: S32.810A - Multiple fractures of pelvis with stable disruption of pelvic ring, initial encounter for closed fracture NILSON JOY PA-C Jul 20, 2017 13:51
--- NOTE | 2017-07-20 14:05 | RADIOLOGY IMAGING REPORT ---
FACILITY: [facility] PATIENT NAME: Cm Hamlin : 1995 MR: [id number] V: [id number] EXAM DATE: ORDERING PHYSICIAN: NILSON JOY TECHNOLOGIST: Location: [facility] [place] Patient: Cm Hamlin : 1995 Visit/Account:[id number] Date of Sevice: 07/20/2017 ADDENDUM #1 Upon further review, there is a fracture involving the left acetabular wall and left iliac wing, and the lucency projected over the left iliac wing is not bowel gas. Report Dictated By: Angela Yao MD at 07/20/2017 2:49 PM Report E-Signed By: Angela Yao MD at 07/20/2017 2:49 PM ORIGINAL REPORT INDICATION: left hip pain. DATE: 07/20/2017 1:59 PM. TECHNIQUE: HIP LEFT COMPARISON: Radiographs of June 05, 2017. FINDINGS: There are posttraumatic/dysplastic changes of the left femur. No evidence of acute fracture or dislocation. An old distal femoral fracture is noted. A natalie in both femurs is noted. IMPRESSION: No acute osseous abnormality. Old distal femoral fracture is noted. Posttraumatic/dysplastic findings of the left femur in keeping with history of osteogenesis imperfect a Report Dictated By: Angela Yao MD at 07/20/2017 1:59 PM Report E-Signed By: Angela Yao MD at 07/20/2017 2:02 PM WSN:[id number]
--- NOTE | 2017-07-20 15:01 | RADIOLOGY IMAGING REPORT ---
FACILITY: [facility] PATIENT NAME: Cm Hamlin : 1995 MR: [id number] V: [id number] EXAM DATE: [id number] ORDERING PHYSICIAN: NILSON JOY TECHNOLOGIST: [place] [facility] [place]: Cm Hamlin : 1995 Visit/Account:[id number] Date of Sevice: 07/20/2017 INDICATION: left hip pain, osteogenesis imperfecta type III. DATE: 07/20/2017 2:48 PM. TECHNIQUE: PELVIS W/O CONTRAST. Noncontrast axial CT imaging was performed through the pelvis with sa gittal and coronal reformats. One of the following dose optimization techniques was utilized in the p erformance of this exam: Automated exposure control; adjustment of the mA and/or kV according to the patient's size; or use of an iterative reconstruction technique. Specific details can be referenced in the facility's radiology CT exam operational policy. COMPARISON: Radiographs of the same day. FINDINGS: A fracture of the left iliac wing is comminuted and displaced with multiple small fragments along the fracture line. The fracture extends to involve the acetabular roof and anterior acetabular wall on t he left. There is also a fracture line extending into the superior pubic ramus on the left. The femor al head remains in articulation with the left acetabulum. The natalie within the left femur is incomplete ly imaged as is the natalie within the right femur. There is a fracture of the sacrum on the right. IMPRESSION: 1. Comminuted fracture of the left iliac wing is displaced, and the fracture extends to involve the s uperior acetabular roof and anterior acetabular wall as well as the left superior pubic ramus. 2. Fracture of the right sacral wing. 3. Diffusely decreased bone density. Report Dictated By: Angela Yao MD at 07/20/2017 2:48 PM Report E-Signed By: Angela Yao MD at 07/20/2017 2:57 PM WSN:[id number]
[2017-07-20 15:38] LABS: INR 1.11
[2017-07-20 15:42] LABS: PLATELET COUNT, AUTOMATED 274 K/uL (150-450)
[2017-07-20] MEDS ORDERED: ONDANSETRON 4 MG/2 ML VIAL IVP ONE (16:05)
[2017-07-20] MEDS ORDERED: MORPHINE 2 MG/ML SYR IVP ONE (16:05)
[2017-07-20 17:47] VITALS: BP 129/83
== END 2017-07-20 19:21 | disposition short-term general hospital (02) ==
LOC: ER 13:24
DX: S32.810A Multiple fractures of pelvis with stable disruption of pelvic ring, initial encounter for closed fracture (principal); Q78.0 Osteogenesis imperfecta
CPT/HCPCS: 72192; 73502; 85025; 85610; 85730; 96374; 96375; 99285; J2270; J2405; 82040; 82247; 82310; 82374; 82435; 82565; 82947; 84075; 84132; 84155; 84295; 84450; 84460; 84520

== ENCOUNTER → 2017-07-20 | Outpatient (CLI) | payer BC, MEDICAID | LOC: AMB 12:55 | PROVIDERS: ATTEND Nurse Practitioner | DX: M25.552 Pain in left hip (principal); M54.5 Low back pain; Q78.0 Osteogenesis imperfecta | CPT/HCPCS: A0425; A0427 ==

== ENCOUNTER → 2017-07-20 | Outpatient (CLI) | payer BC, MEDICAID | LOC: AMB 19:38 | PROVIDERS: ATTEND Nurse Practitioner | DX: S32.82XA Multiple fractures of pelvis without disruption of pelvic ring, initial encounter for closed fracture (principal) | CPT/HCPCS: A0425; A0426 ==

== ENCOUNTER → 2017-12-25 | Outpatient (CLI) | payer BC, MEDICARE, MEDICAID ==
--- NOTE | 2017-12-25 12:22 | RADIOLOGY IMAGING REPORT ---
[place] [facility] [place] NAME: Cm Hamlin : 1995 MR: [id number] V: [id number] EXAM DATE: ORDERING PHYSICIAN: CHANI CASH TECHNOLOGIST: Location: [facility] Patient: Cm Hamlin : 1995 Visit/Account:[id number] Date of Sevice: 12/25/2017 Left knee Indication: Pain Comparison: None available Findings: 3 views left knee were obtained. Bones are severely osteopenic. Intramedullary fixation device in the left femur and tibia are unrema rkable. There is no acute fracture. No significant effusion. IMPRESSION: 1. Severe osteopenia. Stable postoperative change without evidence of acute bony finding Report Dictated By: Robert Charles MD at 12/25/2017 12:17 PM Report E-Signed By: Robert Charles MD at 12/25/2017 12:18 PM WSN:[id number]
--- NOTE | 2017-12-25 12:22 | RADIOLOGY IMAGING REPORT ---
FACILITY: [facility] PATIENT NAME: Cm Hamlin : 1995 MR: [id number] V: [id number] EXAM DATE: ORDERING PHYSICIAN: CHANI CASH TECHNOLOGIST: Location: [facility] Patient: Cm Hamlin : 1995 Visit/Account:[id number] Date of Sevice: 12/25/2017 Left femur Indication: Pain in the left leg, fall out of the wheelchair Comparison: X-ray examination June 05, 2017 Findings: Bones are osteopenic. Stable appearance of intramedullary natalie left femur. The visualized pubic rami are intact. Old fracture deformity distal femur. IMPRESSION: 1. Osteopenia. Stable operative and posttraumatic changes left femur without acute finding Report Dictated By: Robert Charles MD at 12/25/2017 12:16 PM Report E-Signed By: Robert Charles MD at 12/25/2017 12:16 PM WSN:[id number]
== END ==
LOC: RAD 11:35
PROVIDERS: ATTEND Family Medicine
DX: M85.862 Other specified disorders of bone density and structure, left lower leg (principal)

== ENCOUNTER → 2018-04-11 | Outpatient (CLI) | payer BC, MEDICARE, MEDICAID | LOC: LAB 10:34 | DX: R79.89 Other specified abnormal findings of blood chemistry (principal) | CPT/HCPCS: 36415 ==

== ENCOUNTER 2018-08-29 12:21 | Emergency (ER) | payer BC, MEDICARE, MEDICAID ==
[~2018-08-29 12:21] MED LIST changes: -BACLOFEN; -TRAMADOL
[2018-08-29] MEDS ORDERED: KETAMINE HCL-NS 50 MG/5 ML SYR IVP ONE ×2 (12:45→13:55)
--- NOTE | 2018-08-29 12:48 | ER Report ---
History and Physical Time Seen By MD: 12:20 Hx. of Stated Complaint: passed out and fell out of wheel chair. hit head. right humerous deformity HPI/ROS CHIEF COMPLAINT: Syncope, fall, extremity deformities HISTORY OF PRESENT ILLNESS: 23-year-old male with osteogenesis imperfecta, wheelchair bound, has recently started baclofen and increased on tramadol, woke up feeling fine, notes that he was sitting in wheelchair and playing video games, when he began to feel lightheaded and passed out. The next thing he knows, he woke up on the floor, noting multiple areas of pain and extremity deformities. EMS was called, and patient was placed in c-collar, given fentanyl 100 g and transported to the ED. Patient now complains of pain throughout his spine, right upper extremity, left elbow, bilateral hips, knees, lower legs, ankles. Pain is 10 out of 10. Patient states he is sure he has fractures in all these areas. Patient denies chest pain, shortness of breath, abdominal pain, nausea, vomiting. He denies headache. His last tetanus was within 5 years. REVIEW OF SYSTEMS: Constitutional: No fever, no chills. Eyes: no blurred vision ENT: No sore throat. Cardiovascular: No chest pain, no palpitations. Respiratory: No cough, no shortness of breath. Gastrointestinal: No abdominal pain, no vomiting. Genitourinary: no dysuria Musculoskeletal: above Skin: laceration lateral to left eye due to glasses being impacted against face during fall Neurological: No headache. Remainder of the 14 system rev: Yes Allergies: Coded Allergies: No Known Drug Allergies (Unverified , 06/05/17) Home Meds Reported Medications [Tramadol] No Conflict Check 08/29/18 [Baclofen] No Conflict Check 08/29/18 Quetiapine Fumarate (SEROQUEL XR) 150 Mg Tab.er.24h, 125 MG PO DAILY 06/05/17 Fluoxetine Hcl (FLUOXETINE HCL) 20 Mg Capsule, PO QDAY, CAPSULE 06/05/17 Reviewed Nurses Notes: Yes Old Medical Records Reviewed: Yes Hx Substance Use Disorder: No Hx Alcohol Use: No Constitutional Vital Sign - Last 24 Hours 08/29/18 08/29/18 08/29/18 08/29/18 12:23 12:30 12:35 13:00 Temp 98.3 Pulse 161 155 148 Resp 18 20 21 B/P (MAP) 142/77 144/64 (90) 128/79 (95) 140/85 (103) Pulse Ox 97 97 99 O2 Delivery Room Air 08/29/18 15:00 Pulse 133 Resp 20 Pulse Ox 100 Physical Exam General Appearance: The patient is alert, has no immediate need for airway protection and no signs of toxicity. He is in c collar Eyes: Pupils equal and round no pallor or injection. ENT, Mouth: Mucous membranes are moist. Dentition intact. No facial bone pain. Small punctate laceration lateral to left eye without fb. no ocular involvement Respiratory: There are no retractions, lungs are clear to auscultation. Cardiovascular: tachycardic to 150's Gastrointestinal: Abdomen is soft and non tender, no masses, bowel sounds normal. Neurological: alert, oriented, nad Skin: Warm and dry, no rashes other than above Musculoskeletal: No C-spine tenderness. Patient has upper T-spine tenderness without clear step-off. Patient has upper L-spine tenderness without clear step- off. Patient has no shoulder or clavicle tenderness. Patient has right mid humerus deformity and tenderness. Patient has intact distal upper 70 and lower charring pulses. Patient has left elbow tenderness without clear deformity. Patient has bilateral pelvis tenderness. Patient has bilateral femur tenderness without deformity. Patient has right knee tenderness with significant edema and deformity. He does not have evidence of knee dislocation. Patient has left knee tenderness without deformity. Patient has bilateral tib-fib tenderness without deformity. Patient has bilateral ankle tenderness without deformity. Patient is not able to actively move legs and does not tolerate passive range of motion. DIFFERENTIAL DIAGNOSIS: After history and physical exam differential diagnosis was considered for multiple causes of syncope including hemodynamic his ability, intracranial hemorrhage. Multiple results of fall including multiple fractures, dislocations, chest or abdominal hemorrhage, or other emergent cause of symptoms and fall. Medical Decision Making Data Points Result Diagram: 08/29/18 1246 08/29/18 1246 Laboratory Hematology Test 08/29/18 12:46 Red Blood Count 5.13 M/uL (4.00-5.60) Mean Corpuscular Volume 88.6 fL (80.0-96.0) Mean Corpuscular Hemoglobin 29.9 pg (26.0-33.0) Mean Corpuscular Hemoglobin Concent 33.7 g/dL (32.0-36.0) Red Cell Distribution Width 13.1 % (11.5-14.5) Mean Platelet Volume 6.4 fL (7.2-11.1) Neutrophils (%) (Auto) 81.1 % (39.4-72.5) Lymphocytes (%) (Auto) 13.9 % (17.6-49.6) Monocytes (%) (Auto) 4.1 % (4.1-12.4) Eosinophils (%) (Auto) 0.6 % (0.4-6.7) Basophils (%) (Auto) 0.3 % (0.3-1.4) Nucleated RBC Relative Count (auto) 0.0 /100WBC Neutrophils # (Auto) 9.8 K/uL (2.0-7.4) Lymphocytes # (Auto) 1.7 K/uL (1.3-3.6) Monocytes # (Auto) 0.5 K/uL (0.3-1.0) Eosinophils # (Auto) 0.1 K/uL (0.0-0.5) Basophils # (Auto) 0.0 K/uL (0.0-0.1) Nucleated RBC Absolute Count (auto) 0.00 K/uL Prothrombin Time 12.6 seconds (12.0-14.4) Prothromb Time International Ratio 0.94 Activated Partial Thromboplast Time 27 seconds (23-35) Sodium Level 139 mmol/L (137-145) Potassium Level 3.7 mmol/L (3.5-5.0) Chloride Level 104 mmol/L (98-107) Carbon Dioxide Level 21 mmol/L (22-30) Blood Urea Nitrogen 15 mg/dl (9-21) Creatinine 0.50 mg/dl (0.66-1.25) Glomerular Filtration Rate Calc > 60.0 Random Glucose 101 mg/dl (75-110) Calcium Level 9.2 mg/dl (8.4-10.2) Chemistry Test 08/29/18 12:46 White Blood Count 12.0 k/uL (4.5-11.0) Red Blood Count 5.13 M/uL (4.00-5.60) Hemoglobin 15.3 g/dL (14.0-18.0) Hematocrit 45.5 % (42.0-52.0) Mean Corpuscular Volume 88.6 fL (80.0-96.0) Mean Corpuscular Hemoglobin 29.9 pg (26.0-33.0) Mean Corpuscular Hemoglobin Concent 33.7 g/dL (32.0-36.0) Red Cell Distribution Width 13.1 % (11.5-14.5) Platelet Count 348 K/uL (150-450) Mean Platelet Volume 6.4 fL (7.2-11.1) Neutrophils (%) (Auto) 81.1 % (39.4-72.5) Lymphocytes (%) (Auto) 13.9 % (17.6-49.6) Monocytes (%) (Auto) 4.1 % (4.1-12.4) Eosinophils (%) (Auto) 0.6 % (0.4-6.7) Basophils (%) (Auto) 0.3 % (0.3-1.4) Nucleated RBC Relative Count (auto) 0.0 /100WBC Neutrophils # (Auto) 9.8 K/uL (2.0-7.4) Lymphocytes # (Auto) 1.7 K/uL (1.3-3.6) Monocytes # (Auto) 0.5 K/uL (0.3-1.0) Eosinophils # (Auto) 0.1 K/uL (0.0-0.5) Basophils # (Auto) 0.0 K/uL (0.0-0.1) Nucleated RBC Absolute Count (auto) 0.00 K/uL Prothrombin Time 12.6 seconds (12.0-14.4) Prothromb Time International Ratio 0.94 Activated Partial Thromboplast Time 27 seconds (23-35) Glomerular Filtration Rate Calc > 60.0 Calcium Level 9.2 mg/dl (8.4-10.2) Coagulation Test 08/29/18 12:46 Prothrombin Time 12.6 seconds Prothromb Time International Ratio 0.94 Activated Partial Thromboplast Time 27 seconds EKG/Imaging EKG Interpretation 12 lead EKG: Rhythm: sinus tachycardia [place]: normal QRS: normal ST segments: normal sinus tachycardia, no st elevations/depressions Monitor Interpretation: Sinus Tachycardia ED Course/Re-evaluation ED Course 23-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 He is brought to ED with pain in all limbs, and back, neck. Head/spine images unremarkable, however pt has fractures of multiple limbs, mut liple are through prior fracture sites. Pt has intact palpable pulses in all extremiteis throughout evaluation and after splinting. Of note, he is tachycardic throughout ED stay, with plulse 130-150's; he states baseline is 110-120's; I considered but do not see e/o ongoing hemorrhage. He has nontender abd on repeat evals, and nl hematology. He is given 1L ns total. Pain appears to be driving much of tachycardia - Pt is adminsitered ketamine for xrays and splints; he tolerates this well. He is given fentanyl for pain intially and initially tolerates well, however with last dose appears to have transient hives. I switched to dilaudid, after which he develops hives throughout trunk. These improve within 5 minutes, and just prior to administration of benadryl. Pt appears to have potentially worsening reaction to narcotics; closely monitor narcotic administration. Procedure Procedure: Splint placement. A posterior left arm splint was applied. After application of the splint I returned and re-examined the patient. The splint was adequately immobilizing the joint and distal to the splint the patient's circulation and sensation was intact Procedure: Splint placement. A right leg posterior and stirrup splint was applied. After application of the splint I returned and re-examined the patient. The splint was adequately immobilizing the joint and distal to the splint the patient's circulation and sensation was intact.. Procedure: Splint placement. A left leg posterior splint was applied. After application of the splint I returned and re-examined the patient. The splint was adequately immobilizing the joint and distal to the splint the patient's circulation and sensation was intact. All pulses doppler verified and marked. at 1700 Decision to Disposition Date: Aug 29, 2018 Decision to Disposition Time: 16:39 Critical Care Time I spent a total of 75 minutes of critical care time in obtaining history, performing a physical exam, bedside monitoring of interventions, collecting and interpreting tests and discussion with consultants but not including time spent performing procedures. Depart Departure Latest Vital Signs Vital Signs Date Time Temp Pulse Resp B/P (MAP) Pulse Ox O2 Delivery O2 Flow Rate FiO2 08/29/18 15:00 133 20 100 08/29/18 13:00 140/85 (103) 08/29/18 12:23 98.3 Room Air Impression: Primary Impression: Right humeral fracture Additional Impressions: Left humeral fracture Right femoral fracture Femur fracture, left Fracture of right tibia and fibula Condition: Improved Disposition: XFER TO [facility] ([facility]) Referrals: KRISTINA CHOWDHURY MD (PCP) Problem Qualifiers Primary Impression: Right humeral fracture Encounter type: initial encounter Humerus Location: shaft Fracture type: closed Fracture morphology: oblique Fracture alignment: displaced Qualified Codes: S42.331A - Displaced oblique fracture of shaft of humerus, right arm, initial encounter for closed fracture Additional Impressions: Left humeral fracture Encounter type: initial encounter Humerus Location: distal Fracture type: closed Fracture morphology: other fracture Fracture alignment: displaced Qualified Codes: S42.492A - Other displaced fracture of lower end of left humerus, initial encounter for closed fracture Right femoral fracture Encounter type: initial encounter Femur location: distal Fracture type: closed Fracture morphology: other fracture Qualified Codes: S72.491A - Other fracture of lower end of right femur, initial encounter for closed frac ture Femur fracture, left Encounter type: initial encounter Femur location: distal Fracture type: closed Fracture morphology: other fracture Qualified Codes: S72.492A - Other fracture of lower end of left femur, initial encounter for closed fracture Fracture of right tibia and fibula Encounter type: initial encounter Fracture type: closed Qualified Codes: S82.201A - Unspecified fracture of shaft of right tibia, initial encounter for closed fracture; S82.401A - Unspecified fracture of shaft of right fibula, initial encounter for closed fracture CAROLA CERVANTES MD Aug 29, 2018 12:47
[2018-08-29] MEDS ORDERED: NS(*) 0.9% 500 ML BAG 500 ML IV ONE ×2 (12:50→14:50)
[2018-08-29] MEDS ORDERED: BACLOFEN (12:58)
[2018-08-29] MEDS ORDERED: TRAMADOL (12:58)
[2018-08-29 13:00] VITALS: BP 140/85
[2018-08-29 13:03] LABS: PLATELET COUNT, AUTOMATED 348 K/uL (150-450)
[2018-08-29 13:32] LABS: INR 0.94
[2018-08-29] MEDS ORDERED: fentaNYL CITR 100 MCG/2 ML AMP IVP ONE ×2 (13:35→14:50)
[2018-08-29] MEDS ORDERED: [UNRECOGNIZED DRUG - OTHER] IM ONLY ONE (13:35)
[2018-08-29] MEDS ORDERED: DIPHTH/TETANUS/ACEL. PERTUSSIS IM ONLY ONE (13:40)
[2018-08-29] MEDS ORDERED: KETAMINE HCL-NS 50 MG/5 ML SYR ONE (14:05)
--- NOTE | 2018-08-29 14:27 | RADIOLOGY IMAGING REPORT ---
[place] [facility] [place] NAME: Cm Hamlin : 1995 MR: [id number] V: [id number] EXAM DATE: [id number] ORDERING PHYSICIAN: CAROLA CERVANTES TECHNOLOGIST: Location: [facility] Patient: Cm Hamlin : 1995 Visit/Account:[id number] Date of Sevice: 08/29/2018 EXAMINATION: Head CT without intravenous contrast HISTORY: Fall. Altered mental status. Osteogenesis imperfecta. COMPARISON: 06/05/2017. TECHNIQUE: Contiguous axial images were obtained from the skull base to the vertex without intraven ous contrast. Sagittal and coronal reformatted images are also submitted. One of the following dose optimization techniques was utilized in the performance of this exam: Autom ated exposure control; adjustment of the mA and/or kV according to the patient's size; or use of an i terative reconstruction technique. Specific details can be referenced in the facility's radiology C T exam operational policy. FINDINGS: Brain and intracranial structures: Stable mild prominence of the lateral ventricles. Mild prominenc e of the basal cisterns, similar to previous examination. Small focus of probable heterotopic gutiérrez m atter along the body of the left lateral ventricle measuring 9 x 8 x 5 mm, unchanged. No midline shift, acute hemorrhage, or acute infarct. Calvarium / scalp: Multiple linear lucencies in the posterior calvarium which are chronic and unchan ged compared with the previous examination. No acute fracture is identified. Skull base / visualized face: Mild swelling in the lateral left periorbital soft tissues. No eviden ce of acute fracture. Visualized sinuses / orbits: Trace patchy mucosal thickening in the ethmoid air cells and left sphen oid sinus. IMPRESSION: No acute intracranial abnormality. No evidence of acute skull fracture. Mild swelling in the left periorbital soft tissues. Report Dictated By: Jose Gutierrez MD at 08/29/2018 2:05 PM Report E-Signed By: Jose Gutierrez MD at 08/29/2018 2:21 PM WSN:[email or web address]
--- NOTE | 2018-08-29 14:44 | RADIOLOGY IMAGING REPORT ---
FACILITY: [facility] PATIENT NAME: Cm Hamlin : 1995 MR: [id number] V: [id number] EXAM DATE: [id number] ORDERING PHYSICIAN: CAROLA CERVANTES TECHNOLOGIST: Location: [facility] [place] Patient: Cm Hamlin : 1995 Visit/Account:[id number] Date of Sevice: 08/29/2018 EXAMINATION: CT Cervical spine without intravenous contrast HISTORY: Fall. Altered mental status. Osteogenesis imperfecta. COMPARISON: 06/05/2017. TECHNIQUE: Axial images were obtained from the skull base through the upper thoracic spine without I V contrast administration. Coronal and sagittal reformatted images were obtained from the axial [facility] e data. One of the following dose optimization techniques was utilized in the performance of this exam: Autom ated exposure control; adjustment of the mA and/or kV according to the patient's size; or use of an i terative reconstruction technique. Specific details can be referenced in the facility's radiology C T exam operational policy. FINDINGS: Alignment: Normal. Cranio-cervical junction: Negative. Vertebral bodies: Vertebral body heights are maintained. No acute fracture. Posterior elements: No acute fracture. Hardware: None. Disc Spaces: Negative. Soft tissues: Negative. Visualized upper chest: Negative. IMPRESSION: No acute fracture of the cervical spine. Report Dictated By: Jose Gutierrez MD at 08/29/2018 2:30 PM Report E-Signed By: Jose Gutierrez MD at 08/29/2018 2:39 PM WSN:[email or web address]
--- NOTE | 2018-08-29 14:46 | EKG ---
FACILITY: [facility] PATIENT NAME: FELICIA BROWNE : [id number] MR: [id number] V: [id number] EXAM DATE: ORDERING PHYSICIAN: CAROLA CERVANTES TECHNOLOGIST: Test Reason : syncope Blood Pressure : / mmHG Vent. Rate : 145 BPM Atrial Rate : 145 BPM P-R Int : 130 ms QRS Dur : 076 ms QT Int : 294 ms P-R-T Axes : 016 066 060 degrees QTc Int : 456 ms Sinus tachycardia Otherwise normal ECG No previous ECGs available Confirmed by SKIP MOY ([id number]) on 08/29/2018 9:03:50 PM Referred By: Confirmed By:SKIP MOY
--- NOTE | 2018-08-29 14:51 | RADIOLOGY IMAGING REPORT ---
FACILITY: [facility] PATIENT NAME: Cm Hamlin : 1995 MR: [id number] V: [id number] EXAM DATE: [id number] ORDERING PHYSICIAN: CAROLA CERVANTES TECHNOLOGIST: Location[place] [facility] [place] Patient: Cm Hamlin : 1995 Visit/Account:[id number] Date of Sevice: 08/29/2018 EXAMINATION: CT Lumbar spine without intravenous contrast HISTORY: Fall. Altered mental status. Osteogenesis imperfecta. COMPARISON: 06/05/2017. TECHNIQUE: Axial images were obtained through the lumbar spine without IV contrast administration. C oronal and sagittal reformatted images were obtained from the axial source data. One of the following dose optimization techniques was utilized in the performance of this exam: Autom ated exposure control; adjustment of the mA and/or kV according to the patient's size; or use of an i terative reconstruction technique. Specific details can be referenced in the facility's radiology C T exam operational policy. FINDINGS: Alignment: Normal. Vertebral bodies: Vertebral body heights are maintained. The bones are diffusely osteopenic. No festus dence of acute fracture. 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 Hardware: None. Disc Spaces: Negative. Soft tissues: Negative. Visualized retroperitoneal / abdominal structures: Negative. Other findings: Chronic fracture deformities of the sacrum and left iliac bone. IMPRESSION: No evidence of acute fracture of the lumbar spine. Report Dictated By: Jose Gutierrez MD at 08/29/2018 2:39 PM Report E-Signed By: Jose Gutierrez MD at 08/29/2018 2:46 PM WSN:[facility]
--- NOTE | 2018-08-29 14:56 | RADIOLOGY IMAGING REPORT ---
[facility] PAT[facility] NAME: Cm Hamlin : 1995 MR: [id number] V: [id number] EXAM DATE: [id number] ORDERING PHYSICIAN: CAROLA CERVANTES TECHNOLOGIST: Location: [facility] [place] Patient: Cm Hamlin : 1995 Visit/Account:[id number] Date of Sevice: 08/29/2018 EXAMINATION: CT Thoracic spine without intravenous contrast HISTORY: Fall. Altered mental status. Osteogenesis imperfecta. COMPARISON: 06/05/2017. TECHNIQUE: Axial images were obtained through the thoracic spine without IV contrast administration. Coronal and sagittal reformatted images were obtained from the axial source data. One of the following dose optimization techniques was utilized in the performance of this exam: Autom ated exposure control; adjustment of the mA and/or kV according to the patient's size; or use of an i terative reconstruction technique. Specific details can be referenced in the facility's radiology C T exam operational policy. FINDINGS: Alignment: Scoliosis of the thoracic spine. Vertebral bodies: The bones are diffusely osteopenic. Chronic mild superior endplate compression def ormities of T6 and T7. Thoracic vertebral body heights are otherwise maintained. No evidence of acu te fracture. Posterior elements: No acute fracture. Hardware: None. Disc Spaces: Negative. Soft tissues: Negative. Visualized lungs / abdomen: Negative. IMPRESSION: No evidence of acute fracture of the thoracic spine. Report Dictated By: Jose Gutierrez MD at 08/29/2018 2:46 PM Report E-Signed By: Jose Gutierrez MD at 08/29/2018 2:52 PM WSN:[email or web address]
[2018-08-29] MEDS ORDERED: diphenhydrAMINE 50 MG/ML VIAL ONE ×2 (15:05→16:14)
[2018-08-29] MEDS ORDERED: diphenhydrAMINE 50 MG/ML VIAL IVP ONE ×2 (15:10→16:15)
--- NOTE | 2018-08-29 15:34 | RADIOLOGY IMAGING REPORT ---
FACILITY: [facility] PATIENT NAME: Cm Hamlin : 1995 MR: [id number] V: [id number] EXAM DATE: [id number] ORDERING PHYSICIAN: CAROLA CERVANTES TECHNOLOGIST: Location[place] [facility] [place] Patient: Cm Hamlin : 1995 Visit/Account:[id number] Date of Sevice: 08/29/2018 CHEST SINGLE AP HUMERUS RIGHT ELBOW 2 VIEW BILATERAL FOREARM BILATERAL 2 VIEWS PELVIS XR KNEE 1-2 VIEWS FEMUR BILATERAL 2 VIEWS TIBIA FIBULA BILATERAL 2 VIEWS ANKLE 2 VIEW RIGHT ANKLE 2 VIEW LEFT Indication: Trauma. Comparison: Left knee and left femur radiographs dated 12/25/2017. Right femur, right tibia-fibula, a nd right foot radiographs dated 06/05/2017. Left tibia-fibula and femur right forearm radiographs urszula ed 06/05/2017. Left forearm radiographs dated 06/05/2017. Radiographs dated 06/05/2017. Findings: Diffuse osteopenia. Chest: One view. No consolidation, pleural effusion, or pneumothorax. Normal heart size and mediastin al contours. No acute osseous findings. Mild convex rightward curvature of the thoracic spine. Right humerus: 2 views. New fracture through the mid humeral shaft in the region of the internal fixa tion hardware with 8 to 9 mm of displacement and mild angulation. Left elbow: 3 nonstandard views of the left elbow. Nondisplaced fracture of the distal lateral humeru s. Right elbow: 2 nonstandard views. No evidence of acute fracture or dislocation. Right forearm: 2 views. No evidence of acute fracture, dislocation, or radiopaque foreign body. Chron ic appearing deformity of the distal radius. Left forearm: 2 views. Nondisplaced fracture of the distal lateral humerus. No additional fractures i n the left forearm. Pelvis: One view. Partially imaged intramedullary natalie in the bilateral femur. No evidence of acute fr acture or dislocation. Right femur: 2 views. Intramedullary natalie with displaced fracture of the distal metaphysis. Left femur: 2 views. Intramedullary natalie with displaced fracture of the distal metaphysis. Right knee: 2 views. Intramedullary natalie in the femur. Acute displaced fracture of the distal femoral metaphysis. Chronic appearing deformity of the proximal tibia. Left knee: 3 views. Intramedullary natalie in the femur. Acute displaced fracture of the distal femoral m etaphysis. Intramedullary natalie in the tibia. Right tibia-fibula: 2 views. Comminuted and mildly displaced fracture of the distal tibial metaphysis . Mildly displaced and angulated fracture of the mid fibular shaft. Chronic appearing deformity of th e proximal tibia. Left tibia-fibula: 2 views. Intramedullary natalie in the tibia. No evidence of acute fracture or disloca tion. Right ankle: 2 views. Acute comminuted and mildly displaced fracture of the distal tibial metaphysis. Left ankle: 2 views. Partially imaged intramedullary natalie in the tibia. Irregular shape of the distal tibia could represent a nondisplaced fracture or chronic abnormality. Impression: 1. Mildly displaced and angulated fracture through the right humeral shaft in the region of the prior internal fixation hardware. 2. Nondisplaced fracture of the distal lateral humerus. 3. Mildly displaced fractures of the bilateral distal femoral metaphysis. 4. Comminuted and mildly displaced fracture of the distal right tibial metaphysis. 5. Mildly displaced and angulated fracture of the midshaft of the right fibula. 6. No acute cardiopulmonary process. 7. No acute pelvic fractures. Report Dictated By: Jasvir Serrano MD at 08/29/2018 3:06 PM Report E-Signed By: Jasvir Serrano MD at 08/29/2018 3:29 PM WSN:[id number]
--- NOTE | 2018-08-29 15:34 | RADIOLOGY IMAGING REPORT ---
[place]AC[place] [facility] [place] NAME: mC Hamlin : 1995 MR: [id number] V: [id number] EXAM DATE: [id number] ORDERING PHYSICIAN: CAROLA CERVANTES TECHNOLOGIST: Location: [facility] Patient: Cm Hamlin : 1995 Visit/Account:[id number] Date of Sevice: 08/29/2018 CHEST SINGLE AP HUMERUS RIGHT ELBOW 2 VIEW BILATERAL FOREARM BILATERAL 2 VIEWS PELVIS XR KNEE 1-2 VIEWS FEMUR BILATERAL 2 VIEWS TIBIA FIBULA BILATERAL 2 VIEWS ANKLE 2 VIEW RIGHT ANKLE 2 VIEW LEFT Indication: Trauma. Comparison: Left knee and left femur radiographs dated 12/25/2017. Right femur, right tibia-fibula, a nd right foot radiographs dated 06/05/2017. Left tibia-fibula and femur right forearm radiographs urszula ed 06/05/2017. Left forearm radiographs dated 06/05/2017. Radiographs dated 06/05/2017. Findings: Diffuse osteopenia. Chest: One view. No consolidation, pleural effusion, or pneumothorax. Normal heart size and mediastin al contours. No acute osseous findings. Mild convex rightward curvature of the thoracic spine. Right humerus: 2 views. New fracture through the mid humeral shaft in the region of the internal fixa tion hardware with 8 to 9 mm of displacement and mild angulation. Left elbow: 3 nonstandard views of the left elbow. Nondisplaced fracture of the distal lateral humeru s. Right elbow: 2 nonstandard views. No evidence of acute fracture or dislocation. Right forearm: 2 views. No evidence of acute fracture, dislocation, or radiopaque foreign body. Chron ic appearing deformity of the distal radius. Left forearm: 2 views. Nondisplaced fracture of the distal lateral humerus. No additional fractures i n the left forearm. Pelvis: One view. Partially imaged intramedullary natalie in the bilateral femur. No evidence of acute fr acture or dislocation. Right femur: 2 views. Intramedullary natalie with displaced fracture of the distal metaphysis. Left femur: 2 views. Intramedullary natalie with displaced fracture of the distal metaphysis. Right knee: 2 views. Intramedullary natalie in the femur. Acute displaced fracture of the distal femoral metaphysis. Chronic appearing deformity of the proximal tibia. Left knee: 3 views. Intramedullary natalie in the femur. Acute displaced fracture of the distal femoral m etaphysis. Intramedullary natalie in the tibia. Right tibia-fibula: 2 views. Comminuted and mildly displaced fracture of the distal tibial metaphysis . Mildly displaced and angulated fracture of the mid fibular shaft. Chronic appearing deformity of th e proximal tibia. Left tibia-fibula: 2 views. Intramedullary natalie in the tibia. No evidence of acute fracture or disloca tion. Right ankle: 2 views. Acute comminuted and mildly displaced fracture of the distal tibial metaphysis. Left ankle: 2 views. Partially imaged intramedullary natalie in the tibia. Irregular shape of the distal tibia could represent a nondisplaced fracture or chronic abnormality. Impression: 1. Mildly displaced and angulated fracture through the right humeral shaft in the region of the prior internal fixation hardware. 2. Nondisplaced fracture of the distal lateral humerus. 3. Mildly displaced fractures of the bilateral distal femoral metaphysis. 4. Comminuted and mildly displaced fracture of the distal right tibial metaphysis. 5. Mildly displaced and angulated fracture of the midshaft of the right fibula. 6. No acute cardiopulmonary process. 7. No acute pelvic fractures. Report Dictated By: Jasvir Serraon MD at 08/29/2018 3:06 PM Report E-Signed By: Jasvir Serrano MD at 08/29/2018 3:29 PM WSN:[id number]
--- NOTE | 2018-08-29 15:35 | RADIOLOGY IMAGING REPORT ---
FACILITY: [facility] PATIENT NAME: Cm Hamlin : 1995 MR: [id number] V: [id number] EXAM DATE: [id number] ORDERING PHYSICIAN: CAROLA CERVANTES TECHNOLOGIST: Location: [facility] - [place] Patient: Cm Hamlin : 1995 Visit/Account:[id number] Date of Sevice: 08/29/2018 CHEST SINGLE AP HUMERUS RIGHT ELBOW 2 VIEW BILATERAL FOREARM BILATERAL 2 VIEWS PELVIS XR KNEE 1-2 VIEWS FEMUR BILATERAL 2 VIEWS TIBIA FIBULA BILATERAL 2 VIEWS ANKLE 2 VIEW RIGHT ANKLE 2 VIEW LEFT Indication: Trauma. Comparison: Left knee and left femur radiographs dated 12/25/2017. Right femur, right tibia-fibula, a nd right foot radiographs dated 06/05/2017. Left tibia-fibula and femur right forearm radiographs urszula ed 06/05/2017. Left forearm radiographs dated 06/05/2017. Radiographs dated 06/05/2017. Findings: Diffuse osteopenia. Chest: One view. No consolidation, pleural effusion, or pneumothorax. Normal heart size and mediastin al contours. No acute osseous findings. Mild convex rightward curvature of the thoracic spine. Right humerus: 2 views. New fracture through the mid humeral shaft in the region of the internal fixa tion hardware with 8 to 9 mm of displacement and mild angulation. Left elbow: 3 nonstandard views of the left elbow. Nondisplaced fracture of the distal lateral humeru s. Right elbow: 2 nonstandard views. No evidence of acute fracture or dislocation. Right forearm: 2 views. No evidence of acute fracture, dislocation, or radiopaque foreign body. Chron ic appearing deformity of the distal radius. Left forearm: 2 views. Nondisplaced fracture of the distal lateral humerus. No additional fractures i n the left forearm. Pelvis: One view. Partially imaged intramedullary natalie in the bilateral femur. No evidence of acute fr acture or dislocation. Right femur: 2 views. Intramedullary natalie with displaced fracture of the distal metaphysis. Left femur: 2 views. Intramedullary natalie with displaced fracture of the distal metaphysis. Right knee: 2 views. Intramedullary natalie in the femur. Acute displaced fracture of the distal femoral metaphysis. Chronic appearing deformity of the proximal tibia. Left knee: 3 views. Intramedullary natalie in the femur. Acute displaced fracture of the distal femoral m etaphysis. Intramedullary natalie in the tibia. Right tibia-fibula: 2 views. Comminuted and mildly displaced fracture of the distal tibial metaphysis . Mildly displaced and angulated fracture of the mid fibular shaft. Chronic appearing deformity of th e proximal tibia. Left tibia-fibula: 2 views. Intramedullary natalie in the tibia. No evidence of acute fracture or disloca tion. Right ankle: 2 views. Acute comminuted and mildly displaced fracture of the distal tibial metaphysis. Left ankle: 2 views. Partially imaged intramedullary natalie in the tibia. Irregular shape of the distal tibia could represent a nondisplaced fracture or chronic abnormality. Impression: 1. Mildly displaced and angulated fracture through the right humeral shaft in the region of the prior internal fixation hardware. 2. Nondisplaced fracture of the distal lateral humerus. 3. Mildly displaced fractures of the bilateral distal femoral metaphysis. 4. Comminuted and mildly displaced fracture of the distal right tibial metaphysis. 5. Mildly displaced and angulated fracture of the midshaft of the right fibula. 6. No acute cardiopulmonary process. 7. No acute pelvic fractures. Report Dictated By: Jasvir Serrano MD at 08/29/2018 3:06 PM Report E-Signed By: Jasvir Serrano MD at 08/29/2018 3:29 PM WSN:[id number]
--- NOTE | 2018-08-29 15:36 | RADIOLOGY IMAGING REPORT ---
FACILITY: [facility] PATIENT NAME: Cm Hamlin : 1995 MR: [id number] V: [id number] EXAM DATE: [id number] ORDERING PHYSICIAN: CAROLA CERVANTES TECHNOLOGIST: Location: [facility] Patient: Cm Hamlin : 1995 Visit/Account:[id number] Date of Sevice: 08/29/2018 CHEST SINGLE AP HUMERUS RIGHT ELBOW 2 VIEW BILATERAL FOREARM BILATERAL 2 VIEWS PELVIS XR KNEE 1-2 VIEWS FEMUR BILATERAL 2 VIEWS TIBIA FIBULA BILATERAL 2 VIEWS ANKLE 2 VIEW RIGHT ANKLE 2 VIEW LEFT Indication: Trauma. Comparison: Left knee and left femur radiographs dated 12/25/2017. Right femur, right tibia-fibula, a nd right foot radiographs dated 06/05/2017. Left tibia-fibula and femur right forearm radiographs urszula ed 06/05/2017. Left forearm radiographs dated 06/05/2017. Radiographs dated 06/05/2017. Findings: Diffuse osteopenia. Chest: One view. No consolidation, pleural effusion, or pneumothorax. Normal heart size and mediastin al contours. No acute osseous findings. Mild convex rightward curvature of the thoracic spine. Right humerus: 2 views. New fracture through the mid humeral shaft in the region of the internal fixa tion hardware with 8 to 9 mm of displacement and mild angulation. Left elbow: 3 nonstandard views of the left elbow. Nondisplaced fracture of the distal lateral humeru s. Right elbow: 2 nonstandard views. No evidence of acute fracture or dislocation. Right forearm: 2 views. No evidence of acute fracture, dislocation, or radiopaque foreign body. Chron ic appearing deformity of the distal radius. Left forearm: 2 views. Nondisplaced fracture of the distal lateral humerus. No additional fractures i n the left forearm. Pelvis: One view. Partially imaged intramedullary natalie in the bilateral femur. No evidence of acute fr acture or dislocation. Right femur: 2 views. Intramedullary natalie with displaced fracture of the distal metaphysis. Left femur: 2 views. Intramedullary natalie with displaced fracture of the distal metaphysis. Right knee: 2 views. Intramedullary natalie in the femur. Acute displaced fracture of the distal femoral metaphysis. Chronic appearing deformity of the proximal tibia. Left knee: 3 views. Intramedullary natalie in the femur. Acute displaced fracture of the distal femoral m etaphysis. Intramedullary natalie in the tibia. Right tibia-fibula: 2 views. Comminuted and mildly displaced fracture of the distal tibial metaphysis . Mildly displaced and angulated fracture of the mid fibular shaft. Chronic appearing deformity of th e proximal tibia. Left tibia-fibula: 2 views. Intramedullary natalie in the tibia. No evidence of acute fracture or disloca tion. Right ankle: 2 views. Acute comminuted and mildly displaced fracture of the distal tibial metaphysis. Left ankle: 2 views. Partially imaged intramedullary natalie in the tibia. Irregular shape of the distal tibia could represent a nondisplaced fracture or chronic abnormality. Impression: 1. Mildly displaced and angulated fracture through the right humeral shaft in the region of the prior internal fixation hardware. 2. Nondisplaced fracture of the distal lateral humerus. 3. Mildly displaced fractures of the bilateral distal femoral metaphysis. 4. Comminuted and mildly displaced fracture of the distal right tibial metaphysis. 5. Mildly displaced and angulated fracture of the midshaft of the right fibula. 6. No acute cardiopulmonary process. 7. No acute pelvic fractures. Report Dictated By: Jasvir Serrano MD at 08/29/2018 3:06 PM Report E-Signed By: Jasvir Serrano MD at 08/29/2018 3:29 PM WSN:[id number]
--- NOTE | 2018-08-29 15:36 | RADIOLOGY IMAGING REPORT ---
FACILITY: [facility] - [place] PATIENT NAME: Cm Hamlin : 1995 MR: [id number] V: [id number] EXAM DATE: [id number] ORDERING PHYSICIAN: CAROLA CERVANTES TECHNOLOGIST: Location: [facility] [place] Patient: Cm Hamlin : 1995 Visit/Account:[id number] Date of Sevice: 08/29/2018 CHEST SINGLE AP HUMERUS RIGHT ELBOW 2 VIEW BILATERAL FOREARM BILATERAL 2 VIEWS PELVIS XR KNEE 1-2 VIEWS FEMUR BILATERAL 2 VIEWS TIBIA FIBULA BILATERAL 2 VIEWS ANKLE 2 VIEW RIGHT ANKLE 2 VIEW LEFT Indication: Trauma. Comparison: Left knee and left femur radiographs dated 12/25/2017. Right femur, right tibia-fibula, a nd right foot radiographs dated 06/05/2017. Left tibia-fibula and femur right forearm radiographs urszula ed 06/05/2017. Left forearm radiographs dated 06/05/2017. Radiographs dated 06/05/2017. Findings: Diffuse osteopenia. Chest: One view. No consolidation, pleural effusion, or pneumothorax. Normal heart size and mediastin al contours. No acute osseous findings. Mild convex rightward curvature of the thoracic spine. Right humerus: 2 views. New fracture through the mid humeral shaft in the region of the internal fixa tion hardware with 8 to 9 mm of displacement and mild angulation. Left elbow: 3 nonstandard views of the left elbow. Nondisplaced fracture of the distal lateral humeru s. Right elbow: 2 nonstandard views. No evidence of acute fracture or dislocation. Right forearm: 2 views. No evidence of acute fracture, dislocation, or radiopaque foreign body. Chron ic appearing deformity of the distal radius. Left forearm: 2 views. Nondisplaced fracture of the distal lateral humerus. No additional fractures i n the left forearm. Pelvis: One view. Partially imaged intramedullary natalie in the bilateral femur. No evidence of acute fr acture or dislocation. Right femur: 2 views. Intramedullary natalie with displaced fracture of the distal metaphysis. Left femur: 2 views. Intramedullary natalie with displaced fracture of the distal metaphysis. Right knee: 2 views. Intramedullary natalie in the femur. Acute displaced fracture of the distal femoral metaphysis. Chronic appearing deformity of the proximal tibia. Left knee: 3 views. Intramedullary natalie in the femur. Acute displaced fracture of the distal femoral m etaphysis. Intramedullary natalie in the tibia. Right tibia-fibula: 2 views. Comminuted and mildly displaced fracture of the distal tibial metaphysis . Mildly displaced and angulated fracture of the mid fibular shaft. Chronic appearing deformity of th e proximal tibia. Left tibia-fibula: 2 views. Intramedullary natalie in the tibia. No evidence of acute fracture or disloca tion. Right ankle: 2 views. Acute comminuted and mildly displaced fracture of the distal tibial metaphysis. Left ankle: 2 views. Partially imaged intramedullary natalie in the tibia. Irregular shape of the distal tibia could represent a nondisplaced fracture or chronic abnormality. Impression: 1. Mildly displaced and angulated fracture through the right humeral shaft in the region of the prior internal fixation hardware. 2. Nondisplaced fracture of the distal lateral humerus. 3. Mildly displaced fractures of the bilateral distal femoral metaphysis. 4. Comminuted and mildly displaced fracture of the distal right tibial metaphysis. 5. Mildly displaced and angulated fracture of the midshaft of the right fibula. 6. No acute cardiopulmonary process. 7. No acute pelvic fractures. Report Dictated By: Jasvir Serrano MD at 08/29/2018 3:06 PM Report E-Signed By: Jasvir Serrano MD at 08/29/2018 3:29 PM WSN:[id number]
--- NOTE | 2018-08-29 15:37 | RADIOLOGY IMAGING REPORT ---
FACILITY: [facility] - [place] PATIENT NAME: Cm Hamlin : 1995 MR: [id number] V: [id number] EXAM DATE: [id number] ORDERING PHYSICIAN: CAROLA CERVANTES TECHNOLOGIST: Location: [facility] Patient: Cm Hamlin : 1995 Visit/Account:[id number] Date of Sevice: 08/29/2018 CHEST SINGLE AP HUMERUS RIGHT ELBOW 2 VIEW BILATERAL FOREARM BILATERAL 2 VIEWS PELVIS XR KNEE 1-2 VIEWS FEMUR BILATERAL 2 VIEWS TIBIA FIBULA BILATERAL 2 VIEWS ANKLE 2 VIEW RIGHT ANKLE 2 VIEW LEFT Indication: Trauma. Comparison: Left knee and left femur radiographs dated 12/25/2017. Right femur, right tibia-fibula, a nd right foot radiographs dated 06/05/2017. Left tibia-fibula and femur right forearm radiographs urszula ed 06/05/2017. Left forearm radiographs dated 06/05/2017. Radiographs dated 06/05/2017. Findings: Diffuse osteopenia. Chest: One view. No consolidation, pleural effusion, or pneumothorax. Normal heart size and mediastin al contours. No acute osseous findings. Mild convex rightward curvature of the thoracic spine. Right humerus: 2 views. New fracture through the mid humeral shaft in the region of the internal fixa tion hardware with 8 to 9 mm of displacement and mild angulation. Left elbow: 3 nonstandard views of the left elbow. Nondisplaced fracture of the distal lateral humeru s. Right elbow: 2 nonstandard views. No evidence of acute fracture or dislocation. Right forearm: 2 views. No evidence of acute fracture, dislocation, or radiopaque foreign body. Chron ic appearing deformity of the distal radius. Left forearm: 2 views. Nondisplaced fracture of the distal lateral humerus. No additional fractures i n the left forearm. Pelvis: One view. Partially imaged intramedullary natalie in the bilateral femur. No evidence of acute fr acture or dislocation. Right femur: 2 views. Intramedullary natalie with displaced fracture of the distal metaphysis. Left femur: 2 views. Intramedullary natalie with displaced fracture of the distal metaphysis. Right knee: 2 views. Intramedullary natalie in the femur. Acute displaced fracture of the distal femoral metaphysis. Chronic appearing deformity of the proximal tibia. Left knee: 3 views. Intramedullary natalie in the femur. Acute displaced fracture of the distal femoral m etaphysis. Intramedullary natalie in the tibia. Right tibia-fibula: 2 views. Comminuted and mildly displaced fracture of the distal tibial metaphysis . Mildly displaced and angulated fracture of the mid fibular shaft. Chronic appearing deformity of th e proximal tibia. Left tibia-fibula: 2 views. Intramedullary natalie in the tibia. No evidence of acute fracture or disloca tion. Right ankle: 2 views. Acute comminuted and mildly displaced fracture of the distal tibial metaphysis. Left ankle: 2 views. Partially imaged intramedullary natalie in the tibia. Irregular shape of the distal tibia could represent a nondisplaced fracture or chronic abnormality. Impression: 1. Mildly displaced and angulated fracture through the right humeral shaft in the region of the prior internal fixation hardware. 2. Nondisplaced fracture of the distal lateral humerus. 3. Mildly displaced fractures of the bilateral distal femoral metaphysis. 4. Comminuted and mildly displaced fracture of the distal right tibial metaphysis. 5. Mildly displaced and angulated fracture of the midshaft of the right fibula. 6. No acute cardiopulmonary process. 7. No acute pelvic fractures. Report Dictated By: Jasvir Serrano MD at 08/29/2018 3:06 PM Report E-Signed By: Jasvir Serrano MD at 08/29/2018 3:29 PM WSN:[id number]
--- NOTE | 2018-08-29 15:38 | RADIOLOGY IMAGING REPORT ---
FACILITY: [facility] PATIENT NAME: Cm Hamlin : 1995 MR: [id number] V: [id number] EXAM DATE: ORDERING PHYSICIAN: CAROLA CERVANTES TECHNOLOGIST: Location: [facility] Patient: Cm Hamlin : 1995 Visit/Account:[id number] Date of Sevice: 08/29/2018 CHEST SINGLE AP HUMERUS RIGHT ELBOW 2 VIEW BILATERAL FOREARM BILATERAL 2 VIEWS PELVIS XR KNEE 1-2 VIEWS FEMUR BILATERAL 2 VIEWS TIBIA FIBULA BILATERAL 2 VIEWS ANKLE 2 VIEW RIGHT ANKLE 2 VIEW LEFT Indication: Trauma. Comparison: Left knee and left femur radiographs dated 12/25/2017. Right femur, right tibia-fibula, a nd right foot radiographs dated 06/05/2017. Left tibia-fibula and femur right forearm radiographs urszula ed 06/05/2017. Left forearm radiographs dated 06/05/2017. Radiographs dated 06/05/2017. Findings: Diffuse osteopenia. Chest: One view. No consolidation, pleural effusion, or pneumothorax. Normal heart size and mediastin al contours. No acute osseous findings. Mild convex rightward curvature of the thoracic spine. Right humerus: 2 views. New fracture through the mid humeral shaft in the region of the internal fixa tion hardware with 8 to 9 mm of displacement and mild angulation. Left elbow: 3 nonstandard views of the left elbow. Nondisplaced fracture of the distal lateral humeru s. Right elbow: 2 nonstandard views. No evidence of acute fracture or dislocation. Right forearm: 2 views. No evidence of acute fracture, dislocation, or radiopaque foreign body. Chron ic appearing deformity of the distal radius. Left forearm: 2 views. Nondisplaced fracture of the distal lateral humerus. No additional fractures i n the left forearm. Pelvis: One view. Partially imaged intramedullary natalie in the bilateral femur. No evidence of acute fr acture or dislocation. Right femur: 2 views. Intramedullary natalie with displaced fracture of the distal metaphysis. Left femur: 2 views. Intramedullary natalie with displaced fracture of the distal metaphysis. Right knee: 2 views. Intramedullary natalie in the femur. Acute displaced fracture of the distal femoral metaphysis. Chronic appearing deformity of the proximal tibia. Left knee: 3 views. Intramedullary natalie in the femur. Acute displaced fracture of the distal femoral m etaphysis. Intramedullary natalie in the tibia. Right tibia-fibula: 2 views. Comminuted and mildly displaced fracture of the distal tibial metaphysis . Mildly displaced and angulated fracture of the mid fibular shaft. Chronic appearing deformity of th e proximal tibia. Left tibia-fibula: 2 views. Intramedullary natalie in the tibia. No evidence of acute fracture or disloca tion. Right ankle: 2 views. Acute comminuted and mildly displaced fracture of the distal tibial metaphysis. Left ankle: 2 views. Partially imaged intramedullary natalie in the tibia. Irregular shape of the distal tibia could represent a nondisplaced fracture or chronic abnormality. Impression: 1. Mildly displaced and angulated fracture through the right humeral shaft in the region of the prior internal fixation hardware. 2. Nondisplaced fracture of the distal lateral humerus. 3. Mildly displaced fractures of the bilateral distal femoral metaphysis. 4. Comminuted and mildly displaced fracture of the distal right tibial metaphysis. 5. Mildly displaced and angulated fracture of the midshaft of the right fibula. 6. No acute cardiopulmonary process. 7. No acute pelvic fractures. Report Dictated By: Jasvir Serrano MD at 08/29/2018 3:06 PM Report E-Signed By: Jasvir Serrano MD at 08/29/2018 3:29 PM WSN:[id number]
--- NOTE | 2018-08-29 15:38 | RADIOLOGY IMAGING REPORT ---
FACILITY: [facility] PATIENT NAME: Cm Hamlin : 1995 MR: [id number] V: [id number] EXAM DATE: ORDERING PHYSICIAN: CAROLA CERVANTES TECHNOLOGIST: Location: [facility] Patient: Cm Hamlin : 1995 Visit/Account:[id number] Date of Sevice: 08/29/2018 CHEST SINGLE AP HUMERUS RIGHT ELBOW 2 VIEW BILATERAL FOREARM BILATERAL 2 VIEWS PELVIS XR KNEE 1-2 VIEWS FEMUR BILATERAL 2 VIEWS TIBIA FIBULA BILATERAL 2 VIEWS ANKLE 2 VIEW RIGHT ANKLE 2 VIEW LEFT Indication: Trauma. Comparison: Left knee and left femur radiographs dated 12/25/2017. Right femur, right tibia-fibula, a nd right foot radiographs dated 06/05/2017. Left tibia-fibula and femur right forearm radiographs urszula ed 06/05/2017. Left forearm radiographs dated 06/05/2017. Radiographs dated 06/05/2017. Findings: Diffuse osteopenia. Chest: One view. No consolidation, pleural effusion, or pneumothorax. Normal heart size and mediastin al contours. No acute osseous findings. Mild convex rightward curvature of the thoracic spine. Right humerus: 2 views. New fracture through the mid humeral shaft in the region of the internal fixa tion hardware with 8 to 9 mm of displacement and mild angulation. Left elbow: 3 nonstandard views of the left elbow. Nondisplaced fracture of the distal lateral humeru s. Right elbow: 2 nonstandard views. No evidence of acute fracture or dislocation. Right forearm: 2 views. No evidence of acute fracture, dislocation, or radiopaque foreign body. Chron ic appearing deformity of the distal radius. Left forearm: 2 views. Nondisplaced fracture of the distal lateral humerus. No additional fractures i n the left forearm. Pelvis: One view. Partially imaged intramedullary natalie in the bilateral femur. No evidence of acute fr acture or dislocation. Right femur: 2 views. Intramedullary natalie with displaced fracture of the distal metaphysis. Left femur: 2 views. Intramedullary natalie with displaced fracture of the distal metaphysis. Right knee: 2 views. Intramedullary natalie in the femur. Acute displaced fracture of the distal femoral metaphysis. Chronic appearing deformity of the proximal tibia. Left knee: 3 views. Intramedullary natalie in the femur. Acute displaced fracture of the distal femoral m etaphysis. Intramedullary natalie in the tibia. Right tibia-fibula: 2 views. Comminuted and mildly displaced fracture of the distal tibial metaphysis . Mildly displaced and angulated fracture of the mid fibular shaft. Chronic appearing deformity of th e proximal tibia. Left tibia-fibula: 2 views. Intramedullary natalie in the tibia. No evidence of acute fracture or disloca tion. Right ankle: 2 views. Acute comminuted and mildly displaced fracture of the distal tibial metaphysis. Left ankle: 2 views. Partially imaged intramedullary natalie in the tibia. Irregular shape of the distal tibia could represent a nondisplaced fracture or chronic abnormality. Impression: 1. Mildly displaced and angulated fracture through the right humeral shaft in the region of the prior internal fixation hardware. 2. Nondisplaced fracture of the distal lateral humerus. 3. Mildly displaced fractures of the bilateral distal femoral metaphysis. 4. Comminuted and mildly displaced fracture of the distal right tibial metaphysis. 5. Mildly displaced and angulated fracture of the midshaft of the right fibula. 6. No acute cardiopulmonary process. 7. No acute pelvic fractures. Report Dictated By: Jasvir Serrano MD at 08/29/2018 3:06 PM Report E-Signed By: Jasvir Serrano MD at 08/29/2018 3:29 PM WSN:[id number]
--- NOTE | 2018-08-29 15:39 | RADIOLOGY IMAGING REPORT ---
[facility] PATIENT NAME: Cm Hamlin : 1995 MR: [id number] V: [id number] EXAM DATE: ORDERING PHYSICIAN: CAROLA CERVANTES TECHNOLOGIST: Location: [facility] - [place] Patient: Cm Hamlin : 1995 Visit/Account:[id number] Date of Sevice: 08/29/2018 CHEST SINGLE AP HUMERUS RIGHT ELBOW 2 VIEW BILATERAL FOREARM BILATERAL 2 VIEWS PELVIS XR KNEE 1-2 VIEWS FEMUR BILATERAL 2 VIEWS TIBIA FIBULA BILATERAL 2 VIEWS ANKLE 2 VIEW RIGHT ANKLE 2 VIEW LEFT Indication: Trauma. Comparison: Left knee and left femur radiographs dated 12/25/2017. Right femur, right tibia-fibula, a nd right foot radiographs dated 06/05/2017. Left tibia-fibula and femur right forearm radiographs urszula ed 06/05/2017. Left forearm radiographs dated 06/05/2017. Radiographs dated 06/05/2017. Findings: Diffuse osteopenia. Chest: One view. No consolidation, pleural effusion, or pneumothorax. Normal heart size and mediastin al contours. No acute osseous findings. Mild convex rightward curvature of the thoracic spine. Right humerus: 2 views. New fracture through the mid humeral shaft in the region of the internal fixa tion hardware with 8 to 9 mm of displacement and mild angulation. Left elbow: 3 nonstandard views of the left elbow. Nondisplaced fracture of the distal lateral humeru s. Right elbow: 2 nonstandard views. No evidence of acute fracture or dislocation. Right forearm: 2 views. No evidence of acute fracture, dislocation, or radiopaque foreign body. Chron ic appearing deformity of the distal radius. Left forearm: 2 views. Nondisplaced fracture of the distal lateral humerus. No additional fractures i n the left forearm. Pelvis: One view. Partially imaged intramedullary natalie in the bilateral femur. No evidence of acute fr acture or dislocation. Right femur: 2 views. Intramedullary natalie with displaced fracture of the distal metaphysis. Left femur: 2 views. Intramedullary natalie with displaced fracture of the distal metaphysis. Right knee: 2 views. Intramedullary natalie in the femur. Acute displaced fracture of the distal femoral metaphysis. Chronic appearing deformity of the proximal tibia. Left knee: 3 views. Intramedullary natalie in the femur. Acute displaced fracture of the distal femoral m etaphysis. Intramedullary natalie in the tibia. Right tibia-fibula: 2 views. Comminuted and mildly displaced fracture of the distal tibial metaphysis . Mildly displaced and angulated fracture of the mid fibular shaft. Chronic appearing deformity of th e proximal tibia. Left tibia-fibula: 2 views. Intramedullary natalie in the tibia. No evidence of acute fracture or disloca tion. Right ankle: 2 views. Acute comminuted and mildly displaced fracture of the distal tibial metaphysis. Left ankle: 2 views. Partially imaged intramedullary natalie in the tibia. Irregular shape of the distal tibia could represent a nondisplaced fracture or chronic abnormality. Impression: 1. Mildly displaced and angulated fracture through the right humeral shaft in the region of the prior internal fixation hardware. 2. Nondisplaced fracture of the distal lateral humerus. 3. Mildly displaced fractures of the bilateral distal femoral metaphysis. 4. Comminuted and mildly displaced fracture of the distal right tibial metaphysis. 5. Mildly displaced and angulated fracture of the midshaft of the right fibula. 6. No acute cardiopulmonary process. 7. No acute pelvic fractures. Report Dictated By: Jasvir Serrano MD at 08/29/2018 3:06 PM Report E-Signed By: Jasvir Serrano MD at 08/29/2018 3:29 PM WSN:[id number]
--- NOTE | 2018-08-29 15:39 | RADIOLOGY IMAGING REPORT ---
FACILITY: [facility] PATIENT NAME: Cm Hamlin : 1995 MR: [id number] V: [id number] EXAM DATE: ORDERING PHYSICIAN: CAROLA CERVANTES TECHNOLOGIST: Location: [facility] [place]: Cm Hamlin : 1995 Visit/Account:[id number] Date of Sevice: 08/29/2018 CHEST SINGLE AP HUMERUS RIGHT ELBOW 2 VIEW BILATERAL FOREARM BILATERAL 2 VIEWS PELVIS XR KNEE 1-2 VIEWS FEMUR BILATERAL 2 VIEWS TIBIA FIBULA BILATERAL 2 VIEWS ANKLE 2 VIEW RIGHT ANKLE 2 VIEW LEFT Indication: Trauma. Comparison: Left knee and left femur radiographs dated 12/25/2017. Right femur, right tibia-fibula, a nd right foot radiographs dated 06/05/2017. Left tibia-fibula and femur right forearm radiographs urszula ed 06/05/2017. Left forearm radiographs dated 06/05/2017. Radiographs dated 06/05/2017. Findings: Diffuse osteopenia. Chest: One view. No consolidation, pleural effusion, or pneumothorax. Normal heart size and mediastin al contours. No acute osseous findings. Mild convex rightward curvature of the thoracic spine. Right humerus: 2 views. New fracture through the mid humeral shaft in the region of the internal fixa tion hardware with 8 to 9 mm of displacement and mild angulation. Left elbow: 3 nonstandard views of the left elbow. Nondisplaced fracture of the distal lateral humeru s. Right elbow: 2 nonstandard views. No evidence of acute fracture or dislocation. Right forearm: 2 views. No evidence of acute fracture, dislocation, or radiopaque foreign body. Chron ic appearing deformity of the distal radius. Left forearm: 2 views. Nondisplaced fracture of the distal lateral humerus. No additional fractures i n the left forearm. Pelvis: One view. Partially imaged intramedullary natalie in the bilateral femur. No evidence of acute fr acture or dislocation. Right femur: 2 views. Intramedullary natalie with displaced fracture of the distal metaphysis. Left femur: 2 views. Intramedullary natalie with displaced fracture of the distal metaphysis. Right knee: 2 views. Intramedullary natalie in the femur. Acute displaced fracture of the distal femoral metaphysis. Chronic appearing deformity of the proximal tibia. Left knee: 3 views. Intramedullary natalie in the femur. Acute displaced fracture of the distal femoral m etaphysis. Intramedullary natalie in the tibia. Right tibia-fibula: 2 views. Comminuted and mildly displaced fracture of the distal tibial metaphysis . Mildly displaced and angulated fracture of the mid fibular shaft. Chronic appearing deformity of th e proximal tibia. Left tibia-fibula: 2 views. Intramedullary natalie in the tibia. No evidence of acute fracture or disloca tion. Right ankle: 2 views. Acute comminuted and mildly displaced fracture of the distal tibial metaphysis. Left ankle: 2 views. Partially imaged intramedullary natalie in the tibia. Irregular shape of the distal tibia could represent a nondisplaced fracture or chronic abnormality. Impression: 1. Mildly displaced and angulated fracture through the right humeral shaft in the region of the prior internal fixation hardware. 2. Nondisplaced fracture of the distal lateral humerus. 3. Mildly displaced fractures of the bilateral distal femoral metaphysis. 4. Comminuted and mildly displaced fracture of the distal right tibial metaphysis. 5. Mildly displaced and angulated fracture of the midshaft of the right fibula. 6. No acute cardiopulmonary process. 7. No acute pelvic fractures. Report Dictated By: Jasvir Serrano MD at 08/29/2018 3:06 PM Report E-Signed By: Jasvir Serrano MD at 08/29/2018 3:29 PM WSN:[id number]
[2018-08-29] MEDS ORDERED: HYDROmorphone HCL 2 MG/ML SDV IVP ONE (16:05)
[2018-08-29] MEDS ORDERED: LORazepam 2 MG/ML VIAL IVP ONE (17:25)
== END 2018-08-29 17:34 | disposition short-term general hospital (02) ==
LOC: ER 12:42
DX: S42.331A Displaced oblique fracture of shaft of humerus, right arm, initial encounter for closed fracture (principal); S42.492A Other displaced fracture of lower end of left humerus, initial encounter for closed fracture; S72.491A Other fracture of lower end of right femur, initial encounter for closed fracture; S72.492A Other fracture of lower end of left femur, initial encounter for closed fracture; S82.201A Unspecified fracture of shaft of right tibia, initial encounter for closed fracture; S82.401A Unspecified fracture of shaft of right fibula, initial encounter for closed fracture; Q78.0 Osteogenesis imperfecta; W05.0XXA Fall from non-moving wheelchair, initial encounter
CPT/HCPCS: 29105; 29505; 36415; 70450; 71045; 72125; 72128; 72131; 72170; 73060; 73070; 73090; 73552; 73560; 73590; 73600; 85025; 85610; 85730; 86850; 86900; 86901; 90471; 90715; 93005; 96361; 96374; 96375; 96376; 99291; 99292; A4565; J1170; J1200; J2060; J3010; J3490; J7040; 82310; 82374; 82435; 82565; 82947; 84132; 84295; 84520

== ENCOUNTER → 2018-08-29 | Outpatient (CLI) | payer BC, MEDICARE, MEDICAID ==
[~2018-08-29] MED LIST changes: +BACLOFEN; -QUET150T3 PO; +QUET150T4 PO; +TRAMADOL
== END ==
LOC: AMB 11:49
PROVIDERS: ATTEND Nurse Practitioner
DX: M79.621 Pain in right upper arm (principal); M79.605 Pain in left leg; M79.604 Pain in right leg; Q78.0 Osteogenesis imperfecta; W05.0XXA Fall from non-moving wheelchair, initial encounter

== ENCOUNTER → 2018-08-29 | Outpatient (CLI) | payer BC, MEDICARE, MEDICAID | LOC: AMB 17:16 | PROVIDERS: ATTEND Nurse Practitioner | DX: S72.92XA Unspecified fracture of left femur, initial encounter for closed fracture (principal); S72.91XA Unspecified fracture of right femur, initial encounter for closed fracture; S42.302A Unspecified fracture of shaft of humerus, left arm, initial encounter for closed fracture; S42.301A Unspecified fracture of shaft of humerus, right arm, initial encounter for closed fracture; S82.201A Unspecified fracture of shaft of right tibia, initial encounter for closed fracture; S82.401A Unspecified fracture of shaft of right fibula, initial encounter for closed fracture; Q78.0 Osteogenesis imperfecta | CPT/HCPCS: A0425; A0426 ==

== ENCOUNTER 2018-12-17 17:09 | Emergency (ER) | payer BC, MEDICARE, MEDICAID ==
[~2018-12-17 17:09] MED LIST changes: -BACL-1 PO; -CLON0.1T14 PO; -DIAZ-308 PO; -GABA-549 PO; -MULT-1335 PO; -QUET100T29 PO; -[UNRECOGNIZED DRUG - CODE] PO
[2018-12-17] MEDS ORDERED: MULT-1335 PO (17:21)
[2018-12-17] MEDS ORDERED: BACL-1 PO (17:21)
[2018-12-17] MEDS ORDERED: [UNRECOGNIZED DRUG - CODE] PO (17:21)
[2018-12-17] MEDS ORDERED: FLUO-177 PO (17:21)
[2018-12-17] MEDS ORDERED: CLON0.1T14 PO (17:21)
[2018-12-17] MEDS ORDERED: GABA-549 PO (17:21)
[2018-12-17] MEDS ORDERED: DIAZ-308 PO (17:21)
[2018-12-17] MEDS ORDERED: QUET100T29 PO (17:21)
--- NOTE | 2018-12-17 17:21 | ER Report ---
History and Physical Time Seen By MD: 17:17 Hx. of Stated Complaint: SOB HPI/ROS CHIEF COMPLAINT: SOB HISTORY OF PRESENT ILLNESS: Pt is a 23 yo M with sudden onset of SOB while on a walk. He quickly became weak and found it hard to get home. Has chest pain with inspiration and states it is hard to get air out. No radiation of pain. Associated chills, subjective fever and weakness. Takes a number of medications for anxiety and depression, states he took his usual amount of meds this morning. Has not taken anything for his SOB and exertion makes it worse. REVIEW OF SYSTEMS: Respiratory: No cough, dyspnea, SOB Cardiovascular: No chest pain, no palpitations. Gastrointestinal: No vomiting, no abdominal pain. Musculoskeletal: back pain. Allergies: Coded Allergies: No Known Drug Allergies (Unverified , 12/17/18) Home Meds Reported Medications Baclofen (BACLOFEN) 10 Mg Tablet, 10 MG PO QHS, #30 TAB 12/17/18 Fluoxetine Hcl (FLUOXETINE HCL) 20 Mg Capsule, 40 MG PO QDAY, CAPSULE 12/17/18 Gabapentin (GABAPENTIN) 300 Mg Capsule, 400 MG PO TID, CAPSULE 12/17/18 Clonidine HCl (Clonidine HCl ER) 0.1 Mg Tab.er.12h, 0.2 MG PO QHS PRN 12/17/18 Quetiapine Fumarate (SEROQUEL) 100 Mg Tablet, 200 MG PO QHS 12/17/18 Quetiapine Fumarate (SEROQUEL XR) 200 Mg Tab.er.24h, 200 MG PO 12/17/18 Multivitamin With Minerals (MULTIPLE VITAMIN) 1 Each Tablet, 1 EACH PO DAILY, TAB 12/17/18 Diazepam (DIAZEPAM) 5 Mg Tablet, 5 MG PO QHS, #5 TAB 12/17/18 Discontinued Reported Medications [Tramadol] No Conflict Check 08/29/18 [Baclofen] No Conflict Check 08/29/18 Quetiapine Fumarate (SEROQUEL XR) 150 Mg Tab.er.24h, 125 MG PO DAILY 06/05/17 Fluoxetine Hcl (FLUOXETINE HCL) 20 Mg Capsule, PO QDAY, CAPSULE 06/05/17 Past Medical/Surgical History Past Medical History of osteogenesis imperfecta, depression, ASD, Surgical history of rods in several bones No family history Reviewed Nurses Notes: Yes Hx Substance Use Disorder: No Hx Alcohol Use: No Constitutional Vital Sign - Last 24 Hours 12/17/18 12/17/18 12/17/18 12/17/18 17:15 17:30 18:00 18:30 Temp 98.2 Pulse 128 119 105 98 Resp 20 9 10 18 B/P (MAP) 145/89 137/88 (104) 119/76 (90) 119/72 (88) Pulse Ox 94 94 93 93 O2 Delivery Room Air Physical Exam General Appearance: The patient is alert, has no immediate need for airway protection and no current signs of toxicity. Eyes: Pupils equal and round no injection. Respiratory: Chest is non tender, decreased lung sounds on the left Cardiac: regular rate and rhythm Gastrointestinal: Abdomen is soft and non tender, no masses, bowel sounds normal. Musculoskeletal: Neck: Neck is supple and non tender. Extremities have full range of motion and are non tender. Skin: No rashes or lesions. DIFFERENTIAL DIAGNOSIS: After history and physical exam differential diagnosis was considered for Pneumothorax, PE, [place], Pneumonia, dehydration Medical Decision Making Data Points Result Diagram: 12/17/18 1715 12/17/18 1816 Laboratory Hematology Test 12/17/18 17:15 White Blood Count 8.2 k/uL (4.5-11.0) Red Blood Count 5.49 M/uL (4.00-5.60) Hemoglobin 16.9 g/dL (14.0-18.0) Hematocrit 47.6 % (42.0-52.0) Mean Corpuscular Volume 86.8 fL (80.0-96.0) Mean Corpuscular Hemoglobin 30.8 pg (26.0-33.0) Mean Corpuscular Hemoglobin Concent 35.4 g/dL (32.0-36.0) Red Cell Distribution Width 13.3 % (11.5-14.5) Platelet Count 506 K/uL (150-450) H Mean Platelet Volume 6.2 fL (7.2-11.1) L Neutrophils (%) (Auto) 81.2 % (39.4-72.5) H Lymphocytes (%) (Auto) 14.2 % (17.6-49.6) L Monocytes (%) (Auto) 4.1 % (4.1-12.4) Eosinophils (%) (Auto) 0.1 % (0.4-6.7) L Basophils (%) (Auto) 0.4 % (0.3-1.4) Nucleated RBC Relative Count (auto) 0.1 /100WBC Neutrophils # (Auto) 6.6 K/uL (2.0-7.4) Lymphocytes # (Auto) 1.2 K/uL (1.3-3.6) L Monocytes # (Auto) 0.3 K/uL (0.3-1.0) Eosinophils # (Auto) 0.0 K/uL (0.0-0.5) Basophils # (Auto) 0.0 K/uL (0.0-0.1) Nucleated RBC Absolute Count (auto) 0.01 K/uL Chemistry Test 12/17/18 18:16 Sodium Level 138 mmol/L (137-145) Potassium Level 4.1 mmol/L (3.5-5.0) Chloride Level 101 mmol/L (98-107) Carbon Dioxide Level 23 mmol/L (22-30) Blood Urea Nitrogen 10 mg/dl (9-21) Creatinine 0.50 mg/dl (0.66-1.25) Glomerular Filtration Rate Calc > 60.0 Random Glucose 110 mg/dl (75-110) Calcium Level 10.1 mg/dl (8.4-10.2) Total Bilirubin 0.8 mg/dl (0.2-1.3) Aspartate Amino Transf (AST/SGOT) 39 U/L (0-35) Alanine Aminotransferase (ALT/SGPT) 42 U/L (0-56) Alkaline Phosphatase 215 U/L (0-126) Troponin I < 0.012 ng/ml Total Protein 9.0 g/dl (6.3-8.2) Albumin 4.8 g/dl (3.5-5.0) Urinalysis Test 12/17/18 17:54 Urine Color [place] Urine Clarity Slightly-cloudy Urine pH 5.0 pH (4.8-9.5) Urine Specific [place] 1.028 Urine Protein 100 mg/dL (NEGATIVE) Urine Glucose (UA) Negative mg/dL (NEGATIVE) Urine Ketones 80 mg/dL (NEGATIVE) Urine Blood Negative (NEGATIVE) Urine Nitrite Negative (NEGATIVE) Urine Bilirubin Negative (NEGATIVE) Urine Urobilinogen 4.0 mg/dL (0.2-1.9) Urine Leukocyte Esterase Negative (NEGATIVE) Urine RBC None /HPF (0-2/HPF) Urine WBC <1 /HPF (0-5/HPF) Urine Squamous Epithelial Cells None /LPF (</=FEW) Urine Transitional Epithelial Cells Few /LPF (NONE-FEW) Urine Calcium Oxalate Crystals Many /HPF (NONE) Urine Bacteria Negative /HPF (NONE-FEW) Urine Mucus Few /HPF (NONE-FEW) EKG/Imaging EKG Interpretation 12 lead EKG: Rhythm: Sinus tachycardia with a ventricular rate of 123 bpm [place]: normal QRS: normal ST segments: normal Imaging CHEST PA LAT HISTORY: Respiratory distress for 6 hours. Labored breathing. COMPARISON: 08/29/[address] chest, abdomen, and pelvis 05/18/2017. TECHNIQUE: AP and lateral views of the chest. FINDINGS: PULMONARY/PLEURA: Lungs are clear. There is no pneumothorax or pleural effusion. CARDIOMEDIASTINAL: Cardiac and mediastinal silhouettes are within normal limits. BONES/SOFT TISSUES: No acute osseous abnormality. There is a moderate rightward curvature of the mid to lower thoracic spine. There is a mild leftward curvature of the lumbar spine. There is chronic deformity of the right humeral head, potentially due to prior trauma. The visible abdomen is normal. IMPRESSION: 1. No acute cardiopulmonary process. Report Dictated By: Zhane Mc at 12/17/2018 6:00 PM Report E-Signed By: Zhane Mc at 12/17/2018 6:02 PM ED Course/Re-evaluation ED Course Patient is admitted and examined, history and physical were obtained. Differential diagnoses were considered. On examination lungs are clear, heart is regular, abdomen is soft and nontender. Patient was complaining of being cold. I did have concerns about possible infection, urinary tract infection and pneumonia. X-ray was done which was negative. A CBC, CMP, urinalysis were obtained. The lab results were unremarkable. Patient did have 80 ketones in his urine, I believe those likely the problem with dehydration. After the first liter I did reevaluate the patient, check on how he is feeling. Patient states that he was having persistent weakness especially in the right arm. We did go ahead and repeat a second liter. At that time he did feel significantly improved. He states he is able to move his arms again. We will go ahead and discharge him home at this time. Patient verbalized understanding and agreement with plan. Decision to Disposition Date: Dec 17, 2018 Decision to Disposition Time: 20:42 Depart Departure Latest Vital Signs Vital Signs Date Time Temp Pulse Resp B/P (MAP) Pulse Ox O2 Delivery O2 Flow Rate FiO2 12/17/18 18:30 98 18 119/72 (88) 93 12/17/18 17:15 98.2 Room Air Impression: Primary Impression: Dehydration Condition: Improved Disposition: HOME OR SELF-CARE Referrals: PENNY VASQUEZ MD (PCP) Patient Instructions: Dehydration (ED) Additional Instructions: Maintain your fluids. Recommend 2-3L per day. Follow up with primary care physician. Return to ED if symptoms suddenly worsen. CRISPIN VIGIL Dec 17, 2018 17:21
[2018-12-17] MEDS ORDERED: NS(*) 0.9% 1000 ML BAG 1,000 ML IV ONE ×2 (17:30→18:35)
[2018-12-17 17:40] LABS: PLATELET COUNT, AUTOMATED 506 K/uL (150-450)
--- NOTE | 2018-12-17 18:10 | RADIOLOGY IMAGING REPORT ---
FACILITY: [facility] [place]IENT NAME: Cm Hamlin : 1995 MR: [id number] V: [id number] EXAM DATE: ORDERING PHYSICIAN: CRISPIN VIGIL TECHNOLOGIST: [place] [facility] [place]m Ham[place] : 1995 Visit/Account:[id number] Date of Sevice: 12/17/2018 CHEST PA LAT HISTORY: Respiratory distress for 6 hours. Labored breathing. COMPARISON: 08/29/[address] chest, abdomen, and pelvis 05/18/2017. TECHNIQUE: AP and lateral views of the chest. FINDINGS: PULMONARY/PLEURA: Lungs are clear. There is no pneumothorax or pleural effusion. CARDIOMEDIASTINAL: Cardiac and mediastinal silhouettes are within normal limits. BONES/SOFT TISSUES: No acute osseous abnormality. There is a moderate rightward curvature of the mid to lower thoracic spine. There is a mild leftward curvature of the lumbar spine. There is chronic def ormity of the right humeral head, potentially due to prior trauma. The visible abdomen is normal. IMPRESSION: 1. No acute cardiopulmonary process. Report Dictated By: Zhane Mc at 12/17/2018 6:00 PM Report E-Signed By: Zhane Mc at 12/17/2018 6:02 PM WSN:[id number]
[2018-12-17 20:30] VITALS: BP 127/78
--- NOTE | 2018-12-18 09:08 | EKG ---
FACILITY: [facility] - [place] PATIENT NAME: FELICIA BROWNE : [id number] MR: [id number] V: [id number] EXAM DATE: ORDERING PHYSICIAN: CRISPIN VIGIL TECHNOLOGIST: MARK Test Reason : SOB Blood Pressure : / mmHG Vent. Rate : 123 BPM Atrial Rate : 123 BPM P-R Int : 138 ms QRS Dur : 078 ms QT Int : 312 ms P-R-T Axes : 069 058 060 degrees QTc Int : 446 ms Sinus tachycardia Otherwise normal ECG When compared with ECG of 29-AUG-2018 14:38, No significant change was found Confirmed by SHIRLEY MCGOWAN ([id number]) on 12/18/2018 7:06:37 PM Referred By: VICKEY Confirmed By:SHIRLEY MCGOWAN
== END 2018-12-17 21:27 | disposition home or self-care (01) ==
LOC: ER 17:23
DX: E86.0 Dehydration (principal)
CPT/HCPCS: 71046; 81001; 84484; 85025; 93005; 96360; 96361; 99284; J7030; 82040; 82247; 82310; 82374; 82435; 82565; 82947; 84075; 84132; 84155; 84295; 84450; 84460; 84520

== ENCOUNTER → 2018-12-17 | Outpatient (CLI) | payer BC, MEDICARE, MEDICAID ==
[~2018-12-17] MED LIST changes: +BACL-1 PO; +BACLOFEN; +CLON0.1T14 PO; +DIAZ-308 PO; +GABA-549 PO; +MULT-1335 PO; +QUET100T29 PO; +TRAMADOL; +[UNRECOGNIZED DRUG - CODE] PO
== END ==
LOC: AMB 16:43
PROVIDERS: ATTEND Nurse Practitioner
DX: R06.00 Dyspnea, unspecified (principal); R53.1 Weakness; R07.1 Chest pain on breathing
CPT/HCPCS: A0425; A0427